=== PATIENT | male | born 1930 | race Caucasian/White ===

== ENCOUNTER 2016-09-09 13:09 | Emergency (ER) | payer MEDICARE ==
[2016-04-22 11:00] VITALS: BMI 24.8
[~2016-09-09 13:09] MED LIST: AMOXICILLIN500 M1 PO; ASPIRIN325 MG PO; CARAFATE1 G PO; CATAPRES0.2 MG PO; FUROSEMIDE40 MG PO; HYDROCODON-ACE1 EAC7 PO; LASIX40 MG PO; LOPRESSOR25 MG PO; NEURONTIN 300300 MG PO; NITROQUICK0.4 MG SL; NORVASC10 MG PO; PLAVIX75 MG PO; PRAVACHOL40 MG PO; PROTONIX40 MG PO; VITAMIN B-1000 MCG/M SQ; VITAMIN B-1250 MCG
[2016-09-09 14:10] LABS: BASOPHILS 0.3 % (0-2); EOSINOPHILS 8.2 % (0-7); HEMATOCRIT 34.7 % (42.0-54.0); HEMOGLOBIN 11.2 g/dL (13.5-17.5); IMMATURE GRANULOCYTES 0.4 % (0-5); LYMPHOCYTES 37.4 % (15-50); MCH 30.6 pg (26.0-34.0); MCHC 32.3 g/dL (31.0-37.0); MCV 94.8 fL (80.0-100.0); MEAN PLATELET VOLUME 11.9 fL (7.4-10.4); NEUTROPHILS 47.7 % (40-80); PLATELET COUNT 164 10x3/uL (130-400); RBC 3.66 10x6/uL (4.20-6.10); RDW 14.1 % (11.5-14.5)
[2016-09-09 14:23] LABS: APTT 25.8 SECONDS (22.8-39.4); INR 1.05 (0.85-1.17); PROTIME 13.6 SECONDS (11.6-15.0)
[2016-09-09 14:29] LABS: ALBUMIN 3.4 g/dL (3.4-5.0); ALKALINE PHOSPHATASE 103 U/L (46-116); ALT (SGPT) 22 U/L (10-68); BILIRUBIN - TOTAL 0.32 mg/dL (0.2-1.3); CALC OSMOLALITY 292 mosm/kg (275-300); CALCIUM 8.7 mg/dL (8.5-10.1); CARBON DIOXIDE 27.2 mmol/L (21.0-32.0); CHLORIDE - SERUM 109 mmol/L (98-107); CREATININE - SERUM 3.2 mg/dL (0.6-1.3); GLUCOSE 110 mg/dL (74-106); POTASSIUM - SERUM 4.9 mmol/L (3.5-5.1); PROTEIN - SERUM 6.3 g/dL (6.4-8.2); SODIUM 141 mmol/L (136-145); UREA NITROGEN 42 mg/dL (7-18); eGFR NON AFRICAN AMERICAN 20 mL/min (90-120)
[2016-09-09 14:37] LABS: CREATINE KINASE 104 UL (21-232)
[2016-09-09 14:38] LABS: TROPONIN-I < 0.017 ng/mL (0.000-0.060)
== END 2016-09-09 16:46 | disposition home or self-care (01) ==
LOC: D.ER 13:09
PROVIDERS: Emergency Medicine
DX: R00.1 Bradycardia, unspecified (principal); R47.1 Dysarthria and anarthria; I12.9 Hypertensive chronic kidney disease with stage 1 through stage 4 chronic kidney disease, or unspecified chronic kidney disease; N18.9 Chronic kidney disease, unspecified; I25.10 Atherosclerotic heart disease of native coronary artery without angina pectoris

== ENCOUNTER 2017-02-05 06:20 | Outpatient (CLI) | payer MEDICARE ==
--- NOTE | ~2017-02-05 | HEMODYNAMI ---
PATIENT:THAO BAUMANN MEDICAL RECORD: [id number] : 28 LOCATION:D[facility]MA ADMISSION DATE: 02/05/17 Generatedon:02/05/20179:12 Patient name: THAO BAUMANN Patient #: [id number] : 1930 Date of study: 02/05/2017 Page: Of Hemodynamic Procedure Report Patient Data Patient Demographics Procedure consent was obtained First Name: THAO Gender: Male Last Name: PASTOR : 1930 Middle Initial: M Age: 86 year(s) Patient #: [id number] Race: SSN: [id number] Additional ID: [id number] Contact details [address]: [address] [place] [address] RO[address] State: [place] City: [place] Zip code: [address] Past Medical History Allergies: No known allergies Admission Admission Data Admission Date: 02/05/2017 Admission Time: 6:20 Lab Results Lab Result Date: 02/05/2017 Lab Result Time: 0:00 Biochemistry Name Units Result Min Max BUN mg/dl 35 --(----)-* 7 18 Creatinine mg/dl 2.7 --(----)-* 0.6 1.3 CBC Name Units Result Min Max Hemoglobin g/dl 10.6 *-(----)-- 13.5 17.5 Procedure Procedure Types Cath Procedure Diagnostic Procedure [facility] w/Coronaries PCI Procedure Coronary Stent Initial Miscellaneous Procedures Moderate Sedation up to 30 minutes Peripheral Cath Diagnostic Procedure Cath Peripheral Ynlzf-Obciola-Ezt-Off Procedure Description Procedure Date Procedure Date: 02/05/2017 Procedure Start Time: 8:52 Procedure End Time: 9:08 Procedure Staff Name Function Jarod Gonzalez MD Performing Physician Slime Rodriguez RT Scrub Luis Ramey RN Nurse Abigail Hunt RT Monitor Indication Angina Procedure Data Cath Procedure Fluoroscopy Diagnostic fluoroscopy Total fluoroscopy Time: 3.5 time: 3.5 min min Diagnostic fluoroscopy Total fluoroscopy dose: 556 dose: 556 mGy mGy Contrast Material Contrast Material Type Amount (ml) Isovue 300 59 Entry Location Entry Primary Successful Side Size Upsize Upsize Entry Closure Succes sful Closure Location (Fr) 1 (Fr) 2 (Fr) Remarks Device Remarks Femoral Right 5 Fr 6 Fr Exoseal artery Short Estimated blood loss: 5 ml Procedure Complications No complications Procedure Medications Medication Administration Route Dosage Oxygen NC 2 l/min Lidocaine 2% added to field 20 Heparin Flush Bag added to field 2 bags (1000units/500ml NS) 0.9% NaCl I.V. 100 ml/hr Versed I.V. 0.5 mg Fentanyl I.V. 25 mcg Heparin Bolus I.V. 4000 units Integrilin (Bolus I.V. 6.8 ml 2mg/ml) Plavix P.O. 600 mg Hemodynamics Rest HGB: 10.6 (g/dl) Heart Rate: 55 (bpm) Pressure Samples Time Site Value (mmHg) Purpose Heart Use Rate(bpm) 8:54 LV 120/18,45 Snapshot 48 Snapshots Pre Cath Intra NCS Post Cath Vital Signs Time Heart Resp SPO2 NIBP (mmHg) Rhythm Pain Sedation Rate (ipm) (%) Status Level (bpm) 8:24:47 53 17 97 137/72(107) NSR 0 (11) 9(A) , No pain 8:29:55 51 16 98 141/67(115) NSR 0 (11) 9(A) , No pain 8:34:21 53 15 98 134/63(118) NSR 0 (11) 9(A) , No pain 8:38:45 47 15 100 136/59(110) NSR 0 (11) 9(A) , No pain 8:43:03 49 17 100 130/66(112) NSR 0 (11) 9(A) , No pain 8:47:26 47 16 96 115/60(97) NSR 0 (11) 9(A) , No pain 8:51:42 49 17 99 126/62(98) NSR 0 (11) 9(A) , No pain 8:56:04 45 16 97 112/55(89) NSR 0 (11) 9(A) , No pain 9:00:20 51 17 96 108/57(83) NSR 0 (11) 9(A) , No pain 9:04:36 46 16 95 102/52(81) NSR 0 (11) 9(A) , No pain 9:08:48 49 16 95 94/53(81) NSR 0 (11) 9(A) , No pain Medications Time Medication Route Dose Verified Delivered Reason Notes Effectiveness by by 8:36:24 Oxygen NC 2 Jarod Smith used for l/min Carlos Ramey RN procedure 8:36:31 Lidocaine 2% added 20ml Jarodjami Olivera for local to vial Carlos Gonzalez MD anesthetic field 8:36:37 Heparin Flush added 2 Jarod Jarod used for Bag to bags Carlos Gonzalez MD procedure (1000units/500ml field NS) 8:36:46 0.9% NaCl I.V. 100 Jarod Smith Per physician ml/hr Carlos Ramey RN 8:52:22 Versed I.V. 0.5 Jarod Smith for sedation mg Carlos Ramey RN 8:52:28 Fentanyl I.V. 25 Jarod Smith for sedation mcg Carlos Ramey RN 9:01:08 Heparin Bolus I.V. 4000 Jarod Smith for verifie d units Carlos Ramey RN anticoagulation with dr gonzalez 9:03:31 Integrilin I.V. 6.8 Jarod Smith for wasted (Bolus 2mg/ml) ml Carlos Ramey RN antiplatelet 3.2 ml therapy of vial 9:10:48 Plavix P.O. 600 Jarod Smith for mg Carlos Ramey RN antiplatelet therapy Procedure Log Time Note 8:10:51 Informed consent obtained and on chart 8:10:57 Diagnostic Cath Status : Elective 8:11:15 Indication : Angina 8:11:46 Slime Rodriguez RT(R) sent for patient. Start room use. 8:11:47 Time tracking: Regular hours 8:11:52 Plan of Care:Hemodynamics will remain stable., Cardiac rhythm will remain stable., Comfort level will be maintained., Respiratory function will remain adequate., Patient/ family verbilizes understanding of procedure., Procedure tolerated without complication., Recovers from procedure without complications.. 8:17:00 Patient received from Pre/Post Procedure Room to CCL 2 Alert and oriented. Tansferred to table in Supine position. 8:17:02 Warm blankets applied, and nick hugger turned on for patient comfort. 8:17:02 Correct patient and procedure confirmed by team. 8:17:03 ECG and BP/O2 sat monitors applied to patient. 8:23:34 Vital chart was started 8:24:41 Baseline sample Acquired. 8:24:56 Rhythm: sinus rhythm 8:24:58 Full Disclosure recording started 8:25:01 H&P Date Dictated: 02/02/2017 New H&P dictated by physician.. 8:25:47 Pre-procedure instructions explained to patient. 8:25:47 Pre-op teaching completed and patient verbalized understanding. 8:25:48 Family in waiting room. 8:25:51 Patient NPO since Midnight. 8:26:17 Is the patient allergic to Iodine/contrast media? No. 8:26:18 Was the patient premedicated? No 8:26:19 Is patient on blood thinner?Yes 8:26:22 ACC The patient was administered the following blood thiners within the last 24 hours: ACCPlavix 8:26:57 Patient diabetic? No. 8:26:59 Previous problem with sedation/anesthesia? No ? 8:27:01 Snore? Yes 8:27:02 Sleep apnea? No 8:27:03 Deviated septum? No 8:27:04 Opens mouth fully? Yes 8:27:04 Sticks out tongue? Yes 8:27:06 Airway obstruction? No ? 8:27:10 Dentures? Yes in tight 8:27:16 Pre procedure: right dorsailis pedis pulse Doppler 8:27:19 Pre procedure: left dorsailis pedis pulse Doppler 8:27:22 Patient pain scale 0/10 ?. 8:27:27 IV patent on arrival in left forearm with 0.9% NaCl at O. 8:29:04 Lab Result : Creatinine 2.7 mg/dl 8:29:04 Lab Result : BUN 35 mg/dl 8:29:04 Lab Result : Hemoglobin 10.6 g/dl 8:29:09 Lab results completed and on chart. 8:29:15 Bilateral groins area was prepped with chlora-prep and draped in sterile fashion 8:29:16 Alarms reviewed by R. N. 8:29:16 Sharps counted by scrub and verified by R.N. 8:36:24 Oxygen 2 l/min NC was administered by Luis Ramey RN; used for procedure; 8:36:31 Lidocaine 2% 20ml vial added to field was administered by Jarod Gonzalez MD; for local anesthetic; 8:36:37 Heparin Flush Bag (1000units/500ml NS) 2 bags added to field was administered by Jarod Gonzalez MD; used for procedure; 8:36:46 0.9% NaCl 100 ml/hr I.V. was administered by Luis Ramey RN; Per physician; 8:47:23 Physician arrived 8:47:23 --------ALL STOP TIME OUT------ 8:47:24 Final Timeout: patient, procedure, and site verified with staff and physician. All members of the team are in agreement. 8:47:27 Bilateral groins site verified by team. 8:47:30 Physical assessment completed. ASA score P 2 - A patient with mild systemic disease as per Jarod Gonzalez MD. 8:48:08 Sedation plan: IV Moderate Sedation Versed, Fentanyl 8:48:24 Acist Syringe opened to sterile field. 8:48:24 Acist Hand Control opened to sterile field. 8:48:25 Bag Decanter opened to sterile field. 8:48:25 Medline Cath Pack opened to sterile field. 8:48:26 St Cristóbal 260cm J .035 wire opened to sterile field. 8:48:26 Merit BasixCompak Inflation Kit opened to sterile field. 8:48:26 Acist Manifold opened to sterile field. 8:48:27 Tegaderm 4 x 4 opened to sterile field. 8:49:42 Terumo 5Fr Lincoln Sheath opened to sterile field. 8:49:48 Diagnostic Infinity 5Fr Multipack catheter opened to sterile field. 8:52:22 Versed 0.5 mg I.V. was administered by Luis Ramey RN; for sedation; 8:52:28 Fentanyl 25 mcg I.V. was administered by Luis Ramey RN; for sedation; 8:52:41 Procedure started. 8:52:45 Local anesthetic to right femoral artery with Lidocaine 2% by Jarod Gonzalez MD.INITIAL ACCESS ONLY 8:52:59 A 5 Fr sheath was inserted into the Right Femoral artery 8:53:55 5 Fr pig guide catheter was inserted over the wire 8:54:28 LV hemodynamics recorded. 8:54:29 LV gram done using KAM 8:54:31 Injector settings: Ml/sec: 5, Volume: 15, 8:54:37 EF : 60 % 8:55:31 Abdominal Aortagram was performed. 8:56:17 Injector settings: Ml/sec: 10, Volume: 20, 8:56:32 5 Fr jl 4 guide catheter was inserted over the wire 8:57:34 LCA angiography performed. 8:57:37 Injector settings: Ml/sec: 3, Volume: 6, 8:58:37 Catheter removed. 8:58:47 5 Fr 3drc guide catheter was inserted over the wire 8:59:05 No World Bordersumo 6Fr Lincoln Sheath opened to sterile field. 8:59:19 Aragon Michelle Kaufmann Designsisper J 300cm 0.014 guide wire opened to sterile field. 8:59:39 RCA angiography performed. 8:59:41 Injector settings: Ml/sec: 3, Volume: 6, 8:59:43 Catheter removed. 8:59:43 Proceeding to intervention. 8:59:53 Sheath upsized to a 6 Fr Short. 9:00:38 Element Labstronic Launcher 6Fr 3DRC guide catheter opened to sterile field. 9:00:47 6 Fr 3drc guide catheter was inserted over the wire 9:00:51 LC Style.comisper wire advanced. 9:01:08 Heparin Bolus 4000 units I.V. was administered by Luis Ramey RN; for anticoagulation; verified with dr gonzalez 9:02:12 Wire advanced across lesion. 9:03:31 Integrilin (Bolus 2mg/ml) 6.8 ml I.V. was administered by Luis Ramey RN; for antiplatelet therapy; wasted 3.2 ml of vial 9:04:18 Inflation Number: 1 A Vaibhav OTW 3.5 x 15 stent was prepped and advanced across the Prox RCA. The stent was deployed at 21 JEANNE for 0:10 (min:sec). 9:04:26 Inflation number: 2 The stent balloon was then re-inflated across the Prox RCA to 23 JEANNE for 0:10 (min:sec). 9:05:01 Stent catheter was removed intact over wire. 9:05:02 Wire removed. 9:05:02 Guide catheter removed. 9:05:11 Cordis 6Fr Exoseal opened to sterile field. 9:06:23 Sheath removed intact; hemostasis achieved with Exoseal to the Right Femoral artery. 9:06:25 Procedure ended.(Physican Out) 9:07:00 Fluoroscopy time 03.50 minutes. 9:07:04 Fluoroscopy dose: 556 mGy 9:07:04 Flurop Dose total: 556 9:07:14 Contrast amount:Isovue 300 59ml. 9:07:18 Sharps counted by scrub and verified by R.N. 9:07:26 Insertion/operative site no bleeding no hematoma. 9:07:31 Post-op/insertion site Right Femoral artery dressed using a 4 x 4 and Tegaderm. 9:07:34 Post right femoral artery:stable 9:07:36 Post Procedure Pulses reassessed and unchanged 9:07:39 Post procedure rhythm: unchanged. 9:07:41 Estimated blood loss: 5 ml 9:07:42 Post procedure instruction explained to patient.Patient verbalizes understanding. 9:07:43 Patient needs reinforcement of post procedure teaching. 9:08:05 Procedure type changed to Cath procedure, Diagnostic procedure, LHC, LHC w/Coronaries, PCI procedure, Coronary Stent Initial, Miscellaneous Procedures, Moderate Sedation up to 30 minutes, Peripheral Cath Diagnostic Procedure, Cath Peripheral, Wbtle-Goggwns-Uil-Off 9:08:05 Procedure and supply charges have been captured, reviewed, submitted and are correct. 9:08:10 Procedure Complication : No complications 9:08:13 Vital chart was stopped 9:08:13 See physician's report for complete and final results. 9:08:16 Report given to Pre/Post Procedure Room. 9:08:19 Patient transfered to Pre/Post Procedure Room with Stretcher. 9:08:21 Procedure ended. 9:08:21 Full Disclosure recording stopped 9:08:29 ACC-PCI Only Patient was given prescriptions, or instructed by Jarod Gonzalez MD to start/continue the following medications upon discharge: Plavix 9:08:31 End room use (Document Last) 9:10:48 Plavix 600 mg P.O. was administered by Luis Ramey RN; for antiplatelet therapy; Intervention Summary Intervention Notes Time ActionType Lesion and Equipment Action# Pressure Duration Attributes Used 9:04:18 Place stent Prox RCA Vaibhav OTW 1 21 00:10 3.5 x 15 stent 9:04:26 Reinflate Prox RCA Vaibhav OTW 2 23 00:10 stent 3.5 x 15 balloon stent Device Usage Item Name Manufacture Quantity Catalog Hospital Part Current Minima l Lot# / Number Charge Number Stock Stock Serial# Code Acist Acist 1 42716 512902 759473 076341 20 Syringe Medical Systems Inc Acist Hand Acist 1 43468 564355 033038 704052 5 Control Medical Systems Inc Bag Microtek 1 2002S 734421 58709 404455 5 NanoGram Inc. Medline Cardinal 1 [id number] 472322 [address] Crist[address]bal 1 928358 149430 171978 218111 30 260cm J .035 wire [facility] 1 [id number] 492601 727734 983137 15 BasixComApangea Learningk Medical Inflation Kit Acist Acist 1 83495 555005 373392 991464 5 Manifold Medical Systems Inc Tegaderm 4 3M 1 1626W 046926 323421 131058 5 x 4 Terumo 5Fr Terumo 1 [id number] 023968 100404 374987 40 Lincoln Sheath Diagnostic Cardinal 1 OR3159 653776 53862 174483 30 Accessory Addict [employer] 5Fr Multipack catheter Terumo 6Fr Terumo 1 [id number] 052041 813752 733679 40 Lincoln Sheath Aragon Aragon 1 [id number] 987313 334069 227409 5 Whisper J Vascular 300cm 0.014 guide wire Medtronic Medtronic 1 [id number] 473035 264429 765532 1 Launcher 6Fr 3DRC guide catheter Holmes OTW Medtronic 1 [id number] 838359 6527510 551369 5 [id number] 3.5 x 15 stent Cordis 6Fr Cardinal 1 EX600 748276 823931 800265 10 [facility] Innovacene Signature Audit [place] Stage Time Signature Unsigned Intra-Procedure 02/05/2017 Abigail Hunt 9:12:13 AM RT(R) Signatures Monitor : Abigail Hunt RT Signature : Date : Time : [facility] [address] [place] [address]
[2017-02-05] MEDS ORDERED: ISOSORBIDE MONO30 M1 PO (06:49)
[2017-02-05 06:58] VITALS: BP 132/61; BMI 24.4
[2017-02-05 07:05] LABS: BASOPHILS 0.4 % (0-2); EOSINOPHILS 5.2 % (0-7); HEMATOCRIT 31.9 % (42.0-54.0); HEMOGLOBIN 10.6 g/dL (13.5-17.5); IMMATURE GRANULOCYTES 0.1 % (0-5); LYMPHOCYTES 34.1 % (15-50); MCH 30.3 pg (26.0-34.0); MCHC 33.2 g/dL (31.0-37.0); MCV 91.1 fL (80.0-100.0); MEAN PLATELET VOLUME 10.8 fL (7.4-10.4); MONOCYTES 8.2 % (2-11); PLATELET COUNT 150 10x3/uL (130-400); RDW 13.8 % (11.5-14.5); WBC 7.9 10x3/uL (4.8-10.8)
[2017-02-05 07:18] LABS: ANION GAP 14.6 mmol/L (8-16); CARBON DIOXIDE 22.1 mmol/L (21.0-32.0); CREATININE - SERUM 2.7 mg/dL (0.6-1.3); POTASSIUM - SERUM 4.7 mmol/L (3.5-5.1)
[2017-02-05] MEDS ORDERED: PLAVIX75 MG PO (09:30)
--- NOTE | 2017-02-05 09:40 | NUR ---
2L NC, NO RESP DISTRESS NOTED. RIGHT GROIN 6F EXOSEAL CDI, NO BLEEDING OR HEMATOMA NOTED. NO C/O CHEST PAIN OR NAUSEA. VSS. INSTRUCTED PT TO KEEP HEAD FLAT ON PILLOW AND RIGHT LEG STRAIGHT. AT BEDSIDE, CALL LIGHT WITHIN REACH.
--- NOTE | 2017-02-05 10:10 | NUR ---
RESTING QUIETLY WITH EYES CLOSED. VSS. RIGHT GROIN 6F EXOSEAL CDI, NO BLEEDING OR HEMATOMA NOTED. 2L NC, NO RESP DISTRESS. NO C/O PAIN OR NAUSEA. WILL CONTINUE TO MONITOR.
--- NOTE | 2017-02-05 10:25 | NUR ---
RIGHT GROIN 6F EXOSEAL CDI, NO BLEEDING OR HEMATOMA NOTED. 2L NC, NO RESP DISTRESS. VSS. DENIES ANY PAIN. SIDE RAILS UP X2, CALL LIGHT WITHIN REACH.
--- NOTE | 2017-02-05 10:56 | NUR ---
RESTING QUIETLY WITH EYE CLOSED. NO C/O NAUSEA OR PAIN. RIGHT GROIN 6F EXOSEAL CDI, NO BLEEDING OR HEMATOMA NOTED. VSS. WILL CONTINUE TO MONITOR.
--- NOTE | 2017-02-05 11:25 | NUR ---
RIGHT GROIN 6F EXOSEAL CDI, NO BLEEDING OR HEMATOMA NOTED. 2L NC, NO RESP DISTRESS NOTED. NO C/O AT THIS TIME. SANDWICH TRAY GIVEN, NO NAUSEA. AT BEDSIDE, CALL LIGHT WITHIN REACH.
--- NOTE | 2017-02-05 12:27 | NUR ---
HOB ELEVATED 30 DEGREES. RIGHT GROIN 6F EXOSEAL CDI, NO BLEEDING OR HEMATOMA NOTED.
--- NOTE | 2017-02-05 12:48 | NUR ---
LEFT FA PIV D/C'D WITH CATHETER INTACT, BAND AID TO SITE. UP TO BEDSIDE TO GET DRESSED.
--- NOTE | 2017-02-05 12:54 | NUR ---
UP TO RESTROOM TO VOID.
--- NOTE | 2017-02-05 13:05 | NUR ---
DISCHARGE INSTRUCTIONS GIVEN, VERBALIZED UNDERSTANDING. TAKEN OUT VIA WHEELCHAIR BY CATH THERAPEUTIC SALES SPECIALIST. LEFT FACILITY WITH FAMILY MEMBER AND ALL PERSONAL BELONGINGS.
--- NOTE | 2017-02-05 16:47 | OP ---
PATIENT NAME: THAO BAUMANN MEDICAL RECORD: [id number] :28 LOCATION:D.CAT ADMISSION DATE: SURGEON: DELFINO GARNER MD DATE OF OPERATION: 02/05/2017 PROCEDURES: 1. PTCA stent RCA. 2. Left heart catheterization. 3. Selective coronary angiography. 4. Left ventriculogram. INDICATION: Angina and coronary artery disease. PROCEDURE IN DETAIL: After informed consent was obtained and after a detailed explanation of the risks, benefits as well as alternative therapies, the patient elected to proceed with angiogram and angioplasty. The right femoral area is prepped and draped in normal sterile fashion. The right femoral artery was cannulated via modified Seldinger technique with placement of 6-Cameroonian sheath. All catheters exchanged through this sheath. FINDINGS: The left ventriculogram was performed in standard 30-degree KAM view, reveals good cardiac wall motion throughout all segments. Overall ejection fraction estimated 60%. SELECTIVE CORONARY ANGIOGRAPHY: 1. Left main is with no significant angiographic disease. 2. Left anterior descending has previously placed stents, these are widely patent with no significant restenosis. No disease elsewise throughout the LAD or its branches. 3. Left circumflex shows moderate irregularities, but no flow-limiting stenosis. 4. The right coronary has previously placed stents. There is 90% in-stent restenosis proximally. PTCA STENT OF THE RIGHT CORONARY: The stent used was 3.5 x 15 mm Vaibhav taken to 23 atmospheres. Result was 0% residual stenosis. OVERALL IMPRESSION: Successful percutaneous transluminal coronary angioplasty stent of the right coronary artery going from 90% initial stenosis to 0% residual stenosis. TRANSINT:[id number] Voice Confirmation ID: [id number] DOCUMENT ID: [id number] DELFINO GARNER MD at 1647 CC: [id number] DICTATION DATE: 02/05/17 0911 RECEPTIONIST/TELEPHONE OPERATOR: 02/05/17 1318 DEP CLI 02/05/17 [address] [place] [address]
--- NOTE | 2017-02-05 16:48 | OP ---
PATIENT NAME: THAO BAUMANN MEDICAL RECORD: [id number] :[birth year] LOCATION:D.CAT ADMISSION DATE: SURGEON: DELFINO GARNER MD DATE OF OPERATION: 02/05/2017 PROCEDURES: 1. Aortofemoral runoff. 2. Abdominal aortography. INDICATION: Claudication and peripheral vascular disease. PROCEDURE IN DETAIL: After informed consent was obtained and after detailed explanation of risks, benefits as well as alternative therapies, the patient elected to proceed with angiogram. The right femoral area had a preexisting sheath. All catheters exchanged through this sheath. FINDINGS: The abdominal aortography was performed. The catheter was pulled down for aortofemoral runoff. Abdominal aortography reveals no significant abdominal aortic disease. No dissection or aneurysm formation. No renal artery stenosis. RIGHT LEG: A. Iliac: The common internal and external iliacs are heavily calcified, but only mild luminal irregularities, but no flow-limiting stenosis. B. Femoral system: The common superficial and deep femoral are heavily calcified, but only minimal luminal irregularities, wide patency throughout. No flow-limiting stenosis. C. Popliteal and infrapopliteal vessels are patent giving 3-vessel runoff to the foot. LEFT LEG: A. Iliac: The common internal and external iliacs are heavily calcified, but only mild luminal irregularities, but no flow-limiting stenosis. B. Femoral system: The common superficial and deep femoral are heavily calcified, but only minimal luminal irregularities, wide patency throughout. No flow-limiting stenosis. C. Popliteal and infrapopliteal vessels are patent giving 3-vessel runoff to the foot. OVERALL IMPRESSION: Minimal peripheral vascular disease is present. No flow-limiting stenosis, leg pain is not secondary to arterial vascular insufficiency. TRANSINT:[id number] Voice Confirmation ID: [id number] DOCUMENT ID: [id number] DELFINO GARNER MD at 1648 CC: [id number] DICTATION DATE: 02/05/17 09 INVENTORY TRANSCRIBER: 02/05/17 1320 DEP CLI 02/05/17 [facility] [address] [id number]
== END 2017-02-05 13:05 | disposition home or self-care (01) ==
LOC: D.CATH 06:20
PROVIDERS: Internal Medicine Interventional Cardiology
DX: I25.119 Atherosclerotic heart disease of native coronary artery with unspecified angina pectoris (principal); I10 Essential (primary) hypertension; I70.213 Atherosclerosis of native arteries of extremities with intermittent claudication, bilateral legs; Z87.891 Personal history of nicotine dependence; K21.9 Gastro-esophageal reflux disease without esophagitis; Z01.812 Encounter for preprocedural laboratory examination
CPT/HCPCS: 93458; C9600

== ENCOUNTER 2017-06-07 10:51 | Emergency (ER) | payer MEDICARE ==
[~2017-06-07 10:51] MED LIST changes: +ISOSORBIDE MONO30 M1 PO
[2017-06-07 11:26] LABS: BASOPHILS 0 % (0-2); EOSINOPHILS 3.5 % (0-7); HEMATOCRIT 31.9 % (42.0-54.0); HEMOGLOBIN 10.3 g/dL (13.5-17.5); IMMATURE GRANULOCYTES 0.3 % (0-5); LYMPHOCYTES 30.6 % (15-50); MCH 29.9 pg (26.0-34.0); MCHC 32.3 g/dL (31.0-37.0); MCV 92.5 fL (80.0-100.0); MEAN PLATELET VOLUME 11.1 fL (7.4-10.4); MONOCYTES 11.3 % (2-11); NEUTROPHILS 54.3 % (40-80); RBC 3.45 10x6/uL (4.20-6.10); RDW 13.6 % (11.5-14.5); WBC 6.8 10x3/uL (4.8-10.8)
[2017-06-07 11:27] LABS: PLATELET COUNT 201 10x3/uL (130-400)
[2017-06-07 11:44] LABS: ALBUMIN 3.1 g/dL (3.4-5.0); ANION GAP 15.7 mmol/L (8-16); BILIRUBIN - TOTAL 0.39 mg/dL (0.2-1.3); CALCIUM 9.3 mg/dL (8.5-10.1); CARBON DIOXIDE 22.1 mmol/L (21.0-32.0); CREATININE - SERUM 3.3 mg/dL (0.6-1.3); POTASSIUM - SERUM 4.8 mmol/L (3.5-5.1); PROTEIN - SERUM 6.6 g/dL (6.4-8.2)
== END 2017-06-07 16:17 | disposition home or self-care (01) ==
LOC: D.ER 10:51
PROVIDERS: Family Medicine
DX: R19.7 Diarrhea, unspecified (principal); I12.9 Hypertensive chronic kidney disease with stage 1 through stage 4 chronic kidney disease, or unspecified chronic kidney disease; N18.9 Chronic kidney disease, unspecified

== ENCOUNTER 2017-06-30 12:03 | Outpatient (CLI) | payer MEDICARE ==
--- NOTE | ~2017-06-30 | HEMODYNAMI ---
PATIENT:THAO BAUMANN MEDICAL RECORD: [id number] : [birth year] [id number] ADMISSION DATE: 06/30/17 Generatedon:07/01/201712:25 Patient name: THAO BAUMANN Patient #: [id number] : 1930 Date of study: 07/01/2017 Page: Of Hemodynamic Procedure Report Patient Data Patient Demographics Procedure consent was obtained First Name: THAO Gender: Male Last Name: PASTOR : 1930 Middle Initial: M Age: 86 year(s) Patient #: [id number] Race: SSN: [id number] Additional ID: [id number] Contact details [address]: [address] [place] [address] ROAD State: [place] City: [place] Zip code: [address] Past Medical History Allergies: No known allergies Admission Admission Data Admission Date: 06/30/2017 Admission Time: 19:07 Arrival Date: 06/30/2017 Arrival Time: 12:03 Admit Source: Other Insurance Payor: Medicare Room #: D.2117 Weight (lbs.): 157 Weight (kg.): 71.21 Procedure Procedure Types Cath Procedure PCI Procedure Coronary Stent Coronary Stent Initial Miscellaneous Procedures Moderate Sedation up to 15 minutes Procedure Description Procedure Date Procedure Date: 07/01/2017 Procedure Start Time: 12:15 Procedure End Time: 12:22 Procedure Staff Name Function Jarod Gonzalez MD Performing Physician Abigail Hunt RT Monitor Clarice Chung RT Scrub Lissa Lopez RN Nurse Procedure Data Cath Procedure Fluoroscopy Diagnostic fluoroscopy Total fluoroscopy Time: 1.7 time: 1.7 min min Diagnostic fluoroscopy Total fluoroscopy dose: 149 dose: 149 mGy mGy Contrast Material Contrast Material Type Amount (ml) Isovue 300 40 Entry Location Entry Primary Successful Side Size Upsize Upsize Entry Closure Succes sful Closure Location (Fr) 1 (Fr) 2 (Fr) Remarks Device Remarks Femoral Left 6 Fr Exoseal artery Short Estimated blood loss: 5 ml Procedure Complications No complications Procedure Medications Medication Administration Route Dosage 0.9% NaCl I.V. ml/hr Oxygen NC 2 l/min Lidocaine 2% added to field 20 Heparin Flush Bag added to field 2 bags (1000units/500ml NS) Fentanyl I.V. 25 mcg Versed I.V. 0.5 mg Fentanyl I.V. 25 mcg Versed I.V. 0.5 mg Heparin Bolus I.V. 4000 units Hemodynamics Rest Heart Rate: 60 (bpm) Snapshots Pre Cath Intra NCS Post Cath Vital Signs Time Heart Resp SPO2 etCO2 NIBP (mmHg) Rhythm Pain Sedation Rate (ipm) (%) (mmHg) Status Level (bpm) 11:47:08 65 18 97 0.7 156/68(131) NSR 0 (11) 10(A) , No pain 11:51:28 64 16 99 0 143/77(129) NSR 0 (11) 10(A) , No pain 11:55:46 58 16 97 0 132/70(99) NSR 0 (11) 10(A) , No pain 12:00:00 61 14 98 15.8 147/71(115) NSR 0 (11) 10(A) , No pain 12:04:20 73 16 99 0 134/66(97) NSR 0 (11) 10(A) , No pain 12:08:38 58 14 97 0 132/61(102) NSR 0 (11) 9(A) , No pain 12:12:52 61 14 97 0 125/71(104) NSR 0 (11) 9(A) , No pain 12:17:06 61 14 96 0 136/63(118) NSR 0 (11) 9(A) , No pain 12:21:24 72 16 98 0 140/65(91) NSR 0 (11) 10(A) , No pain Medications Time Medication Route Dose Verified Delivered Reason Notes Effectiveness by by 11:46:09 0.9% NaCl I.V. ml/hr Jarod Alcaraz used for Carlos Lopez RN procedure 11:46:18 Oxygen NC 2 Jarod Alcaraz Per physician l/min Carlos Lopez RN 11:46:26 Lidocaine 2% added 20ml Jarod Olivera for local to vial Carlos Gonzalez MD anesthetic field 11:46:58 Heparin Flush added 2 Jarod Olivera used for Bag to bags Carlos Gonzalez MD procedure (1000units/500ml field NS) 12:05:57 Fentanyl I.V. 25 Jarod Alcaraz for sedation mcg Carlos Lopez RN 12:06:04 Versed I.V. 0.5 Jarod Alcaraz for sedation mg Carlos Lopez RN 12:15:21 Fentanyl I.V. 25 Jarod Alcaraz for sedation mcg Carlos Lopez RN 12:15:26 Versed I.V. 0.5 Jarod Alcaraz for sedation mg Carlos Lopez RN 12:16:40 Heparin Bolus I.V. 4000 Jarod Alcaraz for verifi ed units Carlos Lopez RN anticoagulation by Procedure Log Time Note 10:54:03 Patient Weight : 157 lbs 10:55:55 Diagnostic Cath Status : Elective 11:24:56 Lissa Lopez RN sent for patient. Start room use. 11:24:58 Signed procedure consent form obtained from patient. 11:34:12 Time tracking: Regular hours 11:34:22 Plan of Care:Hemodynamics will remain stable., Cardiac rhythm will remain stable., Comfort level will be maintained., Respiratory function will remain adequate., Patient/ family verbilizes understanding of procedure., Procedure tolerated without complication., Recovers from procedure without complications.. 11:34:51 Patient received from Med II to CCL 2 Alert and oriented. Tansferred to table in Supine position. 11:34:52 Warm blankets applied, and nick hugger turned on for patient comfort. 11:34:53 Correct patient and procedure confirmed by team. 11:34:53 ECG and BP/O2 sat monitors applied to patient. 11:45:56 Vital chart was started 11:46:09 0.9% NaCl ml/hr I.V. was administered by Lissa Lopez RN; used for procedure; 11:46:18 Oxygen 2 l/min NC was administered by Lissa Lopez RN; Per physician; 11:46:26 Lidocaine 2% 20ml vial added to field was administered by Jarod Gonzalez MD; for local anesthetic; 11:46:58 Heparin Flush Bag (1000units/500ml NS) 2 bags added to field was administered by Jarod Gonzalez MD; used for procedure; 11:48:17 Baseline sample Acquired. 11:48:22 Rhythm: sinus rhythm 11:48:23 Full Disclosure recording started 11:50:11 H&P Date Dictated: 07/01/2017 Within 30 days and on chart.. 11:50:13 Pre-procedure instructions explained to patient. 11:50:13 Pre-op teaching completed and patient verbalized understanding. 11:50:14 Family in waiting room. 11:50:15 Patient NPO since Midnight. 11:50:19 Is the patient allergic to Iodine/contrast media? No. 11:50:20 Was the patient premedicated? No 11:50:21 Is patient on blood thinner?Yes 11:50:23 ACC The patient was administered the following blood thiners within the last 24 hours: ACCPlavix 11:50:39 Patient diabetic? No. 11:50:42 Previous problem with sedation/anesthesia? No ? 11:50:43 Snore? Yes 11:50:44 Sleep apnea? No 11:50:45 Deviated septum? No 11:50:47 Opens mouth fully? Yes 11:50:49 Sticks out tongue? Yes 11:50:51 Airway obstruction? No ? 11:50:54 Dentures? Yes out 11:51:01 Pre procedure: right dorsailis pedis pulse 1+ Palpable, but thready & weak; easily obliterated 11:51:03 Pre procedure: left dorsailis pedis pulse 1+ Palpable, but thready & weak; easily obliterated 11:51:05 Patient pain scale 0/10 ?. 11:51:19 IV patent on arrival in right forearm with 0.9% NaCl at [facility]. 11:51:21 Lab results completed and on chart. 11:51:25 Left groin area was prepped with chlora-prep and draped in sterile fashion 11:51:40 Alarms reviewed by R. N. 11:51:41 Sharps counted by scrub and verified by R.N. 12:00:18 Zero performed for pressure channel P1 12:03:37 GUIDE 6FR XBLAD 3.5 SH catheter ([id number]) opened to sterile field. 12:03:38 CHOICE PT Extra Support 182cm wire ([id number]) opened to sterile field. 12:03:54 Use device set CATH PACK 12:03:58 ACIST Syringe (29729) opened to sterile field. 12:03:59 ACIST Hand Control (56727) opened to sterile field. 12:04:00 ACIST Manifold (07638) opened to sterile field. 12:04:01 Medline Cath Pack ([id number]) opened to sterile field. 12:04:02 Bag Decanter (2002S) opened to sterile field. 12:04:03 DIAGNOSTIC WIRE .035 260cm J wire (202917) opened to sterile field. 12:04:14 INFLATOR Merit BasixCompak (DC0628) opened to sterile field. 12:04:15 SHEATH 6FR [place] (HGV597) opened to sterile field. 12::25 Physician arrived 12:: --------ALL STOP TIME OUT------ :: Final Timeout: patient, procedure, and site verified with staff and physician. All members of the team are in agreement. 12:05:32 Left groin site verified by team. 12::37 Physical assessment completed. ASA score P 2 - A patient with mild systemic disease as per Abigail Hunt RT(R). 12:05:40 Sedation plan: IV Moderate Sedation Medication:Versed, Fentanyl 12:05:57 Fentanyl 25 mcg I.V. was administered by Lissa Lopez RN; for sedation; 12:06:04 Versed 0.5 mg I.V. was administered by Lissa Lopez RN; for sedation; 12:15:21 Fentanyl 25 mcg I.V. was administered by Lissa Lopez RN; for sedation; 12:15:21 Procedure started. 12:: Versed 0.5 mg I.V. was administered by Lissa Lopez RN; for sedation; 12:15:26 Local anesthetic to left femerol artery with Lidocaine 2% by Jarod Gonzalez MD.INITIAL ACCESS ONLY 12:15:37 A 6 Fr Short sheath was inserted into the Left Femoral artery 12:16:01 6 Fr xblad 3.5 sh guide catheter was inserted over the wire 12:16:06 choice pt wire advanced. 12:16:40 Heparin Bolus 4000 units I.V. was administered by Lissa Lopez RN; for anticoagulation; verified by 12:17:15 Wire advanced across lesion. 12:19:11 Inflation Number: 1 A RADHA RX 3.5 x 15 stent ([id number]) was prepped and advanced across the LMCA. The stent was deployed at 17 JEANNE for 0:10 (min:sec). 12:20:23 Stent catheter was removed intact over wire. 12:20:24 Wire removed. 12:20:24 Guide catheter removed. 12:20:51 EXOSEAL 6Fr (EX600) opened to sterile field. 12:21:05 Sheath removed intact; hemostasis achieved with Exoseal to the Left Femoral artery. 12:21:07 Procedure ended.(Physican Out) 12:21:26 Fluoroscopy time 01.70 minutes. 12::31 Flurop Dose total: 149 12:21:31 Fluoroscopy dose: 149 mGy 12:21:40 Contrast amount:Isovue 300 40ml. 12:21:42 Sharps counted by scrub and verified by R.N. 12:21:44 Insertion/operative site no bleeding no hematoma. 12:21:47 Post-op/insertion site Left Femoral artery dressed using a 4 x 4 and Tegaderm. 12:21:52 Post left femerol artery:stable 12:21:54 Post Procedure Pulses reassessed and unchanged 12:21:56 Post procedure rhythm: unchanged. 12:21:59 Estimated blood loss: 5 ml 12:22:00 Post procedure instruction explained to patient.Patient verbalizes understanding. 12:22:01 Patient needs reinforcement of post procedure teaching. 12:22:29 Procedure type changed to Cath procedure, PCI procedure, Coronary Stent, Coronary Stent Initial, Miscellaneous Procedures, Moderate Sedation up to 15 minutes 12:22:30 Procedure and supply charges have been captured, reviewed, submitted and are correct. 12:22:34 Procedure Complication : No complications 12:22:36 Vital chart was stopped 12:22:36 See physician's report for complete and final results. 12:22:41 Report given to [facility]. 12:22:44 Patient transfered to [facility] with Stretcher. 12:22:45 Procedure ended. 12:22:45 Full Disclosure recording stopped 12:22:53 ACC-PCI Only Patient was given prescriptions, or instructed by Jarod Gonzalez MD to start/continue the following medications upon discharge: Plavix 12:22:55 End room use (Document Last) Intervention Summary Intervention Notes Time ActionType Lesion and Equipment Used Action# Pressure Duration Attributes 12:19:[address] stent LMCA RADHA RX 3.5 x 1 17 00:10 15 stent ([id number]) Device Usage Item Name Manufacture Quantity Catalog Number Hospital Part Current M inimal Lot# / Charge Number Stock Stock Serial# Code GUIDE 6FR Cardinal 1 [id number] 423174 277548 597469 3 XBLAD 3.5 [facility] catheter ([id number]) CHOICE PT [place] 1 [id number] 445107 687274 966506 5 Extra Support Scientific 182cm wire ([id number]) ACIST Syringe Acist 1 26030 434407 713990 149735 2 0 (72503) [employer] Inc ACIST Hand Acist 1 52487 748171 494343 802063 5 Control Medical (16607) Systems Inc ACIST Manifold Acist 1 80512 004238 201611 250649 5 (53545) [employer] Systems Inc Medline Cath Cardinal 1 [id number] 919496 08093 468126 5 Pack Health ([id number]) Bag Decanter Microtek 1 2001S 547455 83043 752998 5 (2001S) Medical Inc. DIAGNOSTIC [address] [place] 1 610219 436603 355551 099765 3 0 WIRE .035 260cm J wire (329161) INFLATOR Merit Merit 1 US3476 754143 277410 186811 1 5 [facility] (AZ5447) SHEATH 6FR Terumo 1 HUN185 160505 563455 040836 4 0 [place] (SPY448) RADHA RX 3.5 x Medtronic 1 [id number] 713847 8884143 700076 5 [id number] 15 stent ([id number]) EXOSEAL 6Fr Cardinal 1 EX600 997238 398677 446627 1 0 (EX600) Health Signature Audit [place] Stage Time Signature Unsigned Intra-Procedure 07/01/2017 Abigail Hunt 12:25:05 PM RT(R) Signatures Monitor : Abigail Hunt RT Signature : Date : Time : [facility] [address] [place] [address]
--- NOTE | ~2017-06-30 | HEMODYNAMI ---
PATIENT:THAO BAUMANN MEDICAL RECORD: [id number] : 28 LOCATION:[facility] ADMISSION DATE: 06/30/17 Generatedon:06/30/201716:40 Patient name: THAO BAUMANN Patient #: [id number] : 1930 Date of study: 06/30/2017 Page: Of Hemodynamic Procedure Report Patient Data Patient Demographics Procedure consent was obtained First Name: THAO Gender: Male Last Name: PASTOR : 1930 Middle Initial: M Age: 86 year(s) Patient #: [id number] Race: SSN: [id number] Additional ID: [id number] Contact details Address: [address] [place] [address] ROAD State: [place] City: [place] Zip code: [address] Past Medical History Allergies: No known allergies Admission Admission Data Admission Date: 06/30/2017 Admission Time: 12:03 Arrival Date: 06/30/2017 Arrival Time: 12:03 Admit Source: Other Insurance Payor: Medicare Weight (lbs.): 157 Weight (kg.): 71.21 Procedure Procedure Types Cath Procedure Diagnostic Procedure [facility] w/Coronaries PCI Procedure Coronary Stent Coronary Stent Initial Procedure Description Procedure Date Procedure Date: 06/30/2017 Procedure Start Time: 16:19 Procedure End Time: 16:35 Procedure Staff Name Function Jarod Gonzalez MD Performing Physician Abigail Hunt RT Monitor Clarice Chung RT Scrub Luis Ramey RN Nurse Procedure Data Cath Procedure Fluoroscopy Diagnostic fluoroscopy Total fluoroscopy Time: 2.4 time: 2.4 min min Diagnostic fluoroscopy Total fluoroscopy dose: 365 dose: 365 mGy mGy Contrast Material Contrast Material Type Amount (ml) Isovue 300 46 Entry Location Entry Primary Successful Side Size Upsize Upsize Entry Closure Succes sful Closure Location (Fr) 1 (Fr) 2 (Fr) Remarks Device Remarks Femoral Right 5 Fr 6 Fr Exoseal artery Short Estimated blood loss: 5 ml Diagnostic catheters Device Type Used For End Catheter Placement MULTIPACK Pigtail 5 Fr LV Angiography catheter MULTIPACK JL 4.0 5Fr Left Coronary catheter Angiography MULTIPACK 3DRC 5Fr Right Coronary catheter Angiography Procedure Complications No complications Procedure Medications Medication Administration Route Dosage 0.9% NaCl I.V. 100 ml/hr Oxygen NC 2 l/min Heparin Flush Bag added to field 2 bags (1000units/500ml NS) Lidocaine 2% added to field 20 Radial Cocktail added to field 1 syringe (Verapomil 2mg/Nitro 400mcg/Heparin 1500units) Versed I.V. 1 mg Fentanyl I.V. 50 mcg Heparin Bolus I.V. 4000 units Plavix P.O. 75 mg Hemodynamics Rest Heart Rate: 48 (bpm) Pressure Samples Time Site Value (mmHg) Purpose Heart Use Rate(bpm) 16:23 LV 173/16,15 Snapshot 63 Snapshots Pre Cath Intra NCS Post Cath Vital Signs Time Heart Resp SPO2 etCO2 NIBP (mmHg) Rhythm Pain Sedation Rate (ipm) (%) (mmHg) Status Level (bpm) 15:57:07 47 14 100 28.6 214/89(182) SB 0 (11) 10(A) , No pain 16:03:00 48 16 100 36.2 208/85(172) SB 0 (11) 10(A) , No pain 16:07:53 55 16 97 0.7 179/77(143) SB 0 (11) 10(A) , No pain 16:13:31 55 16 98 1.5 163/79(130) SB 0 (11) 10(A) , No pain 16:18:21 47 16 98 17 166/76(133) SB 0 (11) 10(A) , No pain 16:23:14 65 16 94 12 165/74(134) SB 0 (11) 9(A) , No pain 16:28:48 60 16 98 13.5 190/81(148) SB 0 (11) 9(A) , No pain 16:33:41 64 15 99 9 174/80(144) SB 0 (11) 10(A) , No pain 16:40:12 99 0 No Cuff SB 0 (11) 9(A) , No pain Medications Time Medication Route Dose Verified Delivered Reason Note s Effectiveness by by 15:54:00 0.9% NaCl I.V. 100 Phillip Phillip Per physician ml/hr Mark Flores RN RN 15:54:26 Oxygen NC 2 l/min Phillip Phillip Per physician Mark Flores RN RN 15:54:46 Heparin Flush added 2 bags Phillip Phillip used for Bag to Lorigan Lorigan procedure (1000units/500ml field MACKAY RN NS) 15:55:02 Lidocaine 2% added 20ml Phillip Phillip for local to vial Lorigan Lorigan anesthetic field MACKAY RN 15:55:15 Radial Cocktail added 1 Phillip Phillip used for (Verapomil to syringe Lorigan Lorigan procedure 2mg/Nitro field MACKAY RN 400mcg/Heparin 1500units) 16:20:48 Versed I.V. 1 mg Jarod Smith for sedation Carlos Ramey RN 16:20:57 Fentanyl I.V. 50 mcg Jarod Smith for sedation Carlos Ramey RN 16:28:25 Heparin Bolus I.V. 4000 Jarod Smith for veri fied units Carlos Ramey RN anticoagulation with dr gonzalez 16:36:14 Plavix P.O. 75 mg Jarod Smith for Carlos Ramey RN antiplatelet therapy Procedure Log Time Note 15:31:58 Informed consent obtained and on chart 15:32:00 Diagnostic Cath Status : Elective 15:32:31 Clarice Chung RT(R) sent for patient. Start room use. 15:32:32 Time tracking: Regular hours 15:32:37 Plan of Care:Hemodynamics will remain stable., Cardiac rhythm will remain stable., Comfort level will be maintained., Respiratory function will remain adequate., Patient/ family verbilizes understanding of procedure., Procedure tolerated without complication., Recovers from procedure without complications.. 15:42:45 Patient received from ED to CCL 1 Alert and oriented. Tansferred to table in Supine position. 15:43:02 Warm blankets applied, and nick hugger turned on for patient comfort. 15:43:03 Correct patient and procedure confirmed by team. 15:43:10 ECG and BP/O2 sat monitors applied to patient. 15:54:00 0.9% NaCl 100 ml/hr I.V. was administered by Phillip Flores RN; Per physician; 15:54:26 Oxygen 2 l/min NC was administered by Phillip Flores RN; Per physician; 15:54:46 Heparin Flush Bag (1000units/500ml NS) 2 bags added to field was administered by Phillip Flores RN; used for procedure; 15:55:02 Lidocaine 2% 20ml vial added to field was administered by Phillip Flores RN; for local anesthetic; 15:55:15 Radial Cocktail (Verapomil 2mg/Nitro 400mcg/Heparin 1500units) 1 syringe added to field was administered by Phillip Flores RN; used for procedure; 15:55:21 Vital chart was started 15:59:42 Baseline sample Acquired. 15:59:48 Rhythm: sinus bradycardia 15:59:50 Full Disclosure recording started 16:00:24 H&P Date Dictated: 06/30/2017 New H&P dictated by physician.. 16:00:25 Pre-procedure instructions explained to patient. 16:00:25 Pre-op teaching completed and patient verbalized understanding. 16:00:27 Family in waiting room. 16:00:28 Patient NPO since Midnight. 16:00:32 Is the patient allergic to Iodine/contrast media? No. 16:00:33 Was the patient premedicated? No 16:00:37 Is patient on blood thinner?Yes 16:00:40 ACC The patient was administered the following blood thiners within the last 24 hours: ACCPlavix 16:00:43 Patient diabetic? No. 16:00:58 Previous problem with sedation/anesthesia? No ? 16:01:00 Snore? Yes 16:01:01 Sleep apnea? No 16:01:02 Deviated septum? No 16:01:03 Opens mouth fully? Yes 16:01:04 Sticks out tongue? Yes 16:01:06 Airway obstruction? No ? 16:01:14 Dentures? Yes out 16:01:28 Pre procedure: right dorsailis pedis pulse Doppler 16:01:31 Pre procedure: left dorsailis pedis pulse Doppler 16:01:36 Patient pain scale 0/10 ?. 16:01:56 IV patent on arrival in left forearm with 0.9% NaCl at [facility]. 16:02:14 Lab results completed and on chart. 16:02:29 Right groin area was prepped with chlora-prep and draped in sterile fashion 16:02:33 Alarms reviewed by RGladys N. 16:02:34 Sharps counted by scrub and verified by R.N. 16:03:16 Admit Source: Other 16:03:20 Patient Weight : 157 lbs 16:03:22 Arrival Date: 06/30/2017 12:03:00 PM 16:03:32 Insurance Payor : Medicare 16:04:31 Zero performed for pressure channel P1 16:05:02 Physician paged 16:17:08 Physician arrived 16:17:08 --------ALL STOP TIME OUT------ 16:17:08 Final Timeout: patient, procedure, and site verified with staff and physician. All members of the team are in agreement. 16:17:11 Right groin site verified by team. 16:17:14 Physical assessment completed. ASA score P 2 - A patient with mild systemic disease as per Jarod Gonzalez MD. 16:17:17 Sedation plan: IV Moderate Sedation Medication:Versed, Fentanyl 16:17:23 Use device set Femoral Dx 16:17:24 ACIST Syringe (28197) opened to sterile field. 16:17:24 Bag Decanter (2002S) opened to sterile field. 16:17:24 Medline Cath Pack ([id number]) opened to sterile field. 16:17:25 SHEATH 5FR [place] (WLS783) opened to sterile field. 16:17:26 DIAGNOSTIC WIRE .035 260cm J wire (811292) opened to sterile field. 16:17:27 ACIST Hand Control (85805) opened to sterile field. 16:17:27 ACIST Manifold (20173) opened to sterile field. 16:17:28 DIAGNOSTIC Multipack 5Fr catheter set (HE1209) opened to sterile field. 16:17:29 Tegaderm 4 x 4 (1626W) opened to sterile field. 16:17:43 Procedure started. 16:19:15 Local anesthetic to right femoral artery with Lidocaine 2% by Jarod Gonzalez MD.INITIAL ACCESS ONLY 16:20:48 Versed 1 mg I.V. was administered by Luis Ramey RN; for sedation; 16:20:57 Fentanyl 50 mcg I.V. was administered by Luis Ramey RN; for sedation; 16:22:10 Dr Gonzalez holding manual pressure after attempting femoral access 16:22:57 A 5 Fr sheath was inserted into the Right Femoral artery 16:23:11 A MULTIPACK Pigtail 5 Fr catheter was advanced over the wire and used for LV Angiography. 16:23:19 LV hemodynamics recorded. 16:23:20 LV gram done using KAM 16::23 Injector settings: Ml/sec: 5, Volume: 15, 16:23:33 EF : 50 % 16:23:43 Catheter removed. 16:23:49 A MULTIPACK JL 4.0 5Fr catheter was advanced over the wire and used for Left Coronary Angiography. 16:25:03 LCA angiography performed. 16:25:06 Injector settings: Ml/sec: 3, Volume: 6, 16:26:05 Catheter removed. 16:26:12 A MULTIPACK 3DRC 5Fr catheter was advanced over the wire and used for Right Coronary Angiography. 16:26:25 RCA angiography performed. 16::27 Injector settings: Ml/sec: 3, Volume: 6, 16::49 Catheter removed. 16:28:22 Proceeding to intervention. 16:28:25 Heparin Bolus 4000 units I.V. was administered by Luis Ramey RN; for anticoagulation; verified with dr gonzalez 16:29:42 GUIDE 6FR 3DRC SH catheter ([id number]) opened to sterile field. 16:29:43 CHOICE PT Extra Support 182cm wire ([id number]) opened to sterile field. 16:29:44 INFLATOR Merit BasixCompak (RV2883) opened to sterile field. 16:29:45 SHEATH 6FR [place] (BOZ126) opened to sterile field. 16:29:55 Sheath upsized to a 6 Fr Short. 16:30:08 6 Fr 3drc sh guide catheter was inserted over the wire 16:30:13 choice pt wire advanced. 16:30:14 Wire advanced across lesion. 16:30:51 Inflation Number: 1 A RADHA RX 4.0 x 12 stent ([id number]) was prepped and advanced across the Prox RCA. The stent was deployed at 21 JEANNE for 0:10 (min:sec). 16:31:00 Stent catheter was removed intact over wire. 16:31:01 Wire removed. 16:31:01 Guide catheter removed. 16:31:12 EXOSEAL 6Fr (EX600) opened to sterile field. 16:31:23 Sheath removed intact; hemostasis achieved with Exoseal to the Right Femoral artery. 16:31:25 Procedure ended.(Physican Out) 16:33:28 Fluoroscopy time 02.40 minutes. 16:33:34 Fluoroscopy dose: 365 mGy 16:33:34 Flurop Dose total: 365 16:33:41 Contrast amount:Isovue 300 46ml. 16:33:43 Sharps counted by scrub and verified by R.N. 16:33:44 Insertion/operative site no bleeding no hematoma. 16:33:47 Post-op/insertion site Right Femoral artery dressed using a 4 x 4 and Tegaderm. 16:33:49 Post right femoral artery:stable 16:34:14 Post Procedure Pulses reassessed and unchanged 16:34:16 Post procedure rhythm: unchanged. 16:34:19 Estimated blood loss: 5 ml 16:34:20 Post procedure instruction explained to patient.Patient verbalizes understanding. 16:34:21 Patient needs reinforcement of post procedure teaching. 16:34:42 Procedure type changed to Cath procedure, Diagnostic procedure, LHC, LHC w/Coronaries, PCI procedure, Coronary Stent, Coronary Stent Initial 16:34:43 Procedure and supply charges have been captured, reviewed, submitted and are correct. 16:34:48 Procedure Complication : No complications 16:34:50 Vital chart was stopped 16:34:51 See physician's report for complete and final results. 16:34:55 Report given to [facility]. 16:34:58 Patient transfered to [facility] with Stretcher. 16:35:00 Procedure ended. 16:35:00 Full Disclosure recording stopped 16:35:08 ACC-PCI Only Patient was given prescriptions, or instructed by Jarod Gonzalez MD to start/continue the following medications upon discharge: Plavix 16:35:09 End room use (Document Last) 16:36:14 Plavix 75 mg P.O. was administered by Luis Ramey RN; for antiplatelet therapy; 16:39:44 Vital chart was started 16:40:57 Vital chart was stopped Intervention Summary Intervention Notes Time ActionType Lesion and Equipment Used Action# Pressure Duration Attributes 16:30:[address] stent Prox RCA RADHA RX 4.0 x 1 21 00:10 12 stent ([id number]) Device Usage Item Name Manufacture Quantity Catalog Number Hospital Part Current M inimal Lot# / Charge Number Stock Stock Serial# Code ACIST Syringe Acist 1 52458 771011 156718 334467 2 0 (49559) Medical Systems Inc Bag Decanter Microtek 1 2001S 345213 34061 418403 5 (2001S) Medical Inc. Medline Cath Cardinal 1 [id number] 031840 91062 480343 5 Pack Health ([id number]) SHEATH 5FR Terumo 1 WNQ997 830692 058351 477678 4 0 [place] (HBN541) DIAGNOSTIC [address] Crist[address]bal 1 125192 811957 589041 643798 3 0 WIRE .035 260cm J wire (629109) ACIST Hand Acist 1 79946 514219 117529 646451 5 Control Medical (17380) Systems Inc ACIST Manifold Acist 1 84306 824246 981311 958662 5 (38078) Medical Systems Inc DIAGNOSTIC Cardinal 1 VT1404 683398 04684 431566 3 0 Multipack 5Fr Health catheter set (CK7454) Tegaderm 4 x 4 3M 1 1626W 698606 408301 490972 5 (1626W) MULTIPACK Cardinal 1 666706 5 Pigtail 5 Fr Health catheter MULTIPACK JL Cardinal 1 178581 5 4.0 5Fr Health catheter MULTIPACK 3DRC Cardinal 1 727895 5 5Fr catheter Health GUIDE 6FR 3DRC Medtronic 1 [id number] 591981 971471 673017 1 catheter ([id number]) CHOICE PT [place] 1 [id number] 672544 203047 387082 5 Extra Support Scientific 182cm wire ([id number]) INFLATOR Merit Merit 1 PZ6519 435062 546583 814175 1 5 [employer] Medical (GY2997) SHEATH 6FR Terumo 1 CJO947 526888 901349 161543 4 0 [place] (ZXQ270) RADHA RX 4.0 x Medtronic 1 [id number] 638939 6226639 050360 5 [id number] 12 stent ([id number]) EXOSEAL 6Fr Cardinal 1 EX600 094695 895907 220354 1 0 (EX600) Health Signature Audit [place] Stage Time Signature Unsigned Intra-Procedure 06/30/2017 Abigail Hunt 4:40:55 PM RT(R) Signatures Monitor : Abigail Hunt RT Signature : Date : Time : [address] [place] [address]
--- NOTE | ~2017-06-30 | OP ---
PATIENT NAME: THAO BAUMANN MEDICAL RECORD: [id number] :28 LOCATION:[facility] ADMISSION DATE: SURGEON: DELFINO GARNER MD DATE OF OPERATION: 06/30/2017 PROCEDURES: 1. PTCA stent RCA. 2. Left heart catheterization. 3. Selective coronary angiography. 4. Left ventriculogram. INDICATION: Angina and coronary artery disease. PROCEDURE IN DETAIL: After informed consent was obtained and after detailed explanation of risks, benefits as well as alternative therapies, the patient elected to proceed with angiogram and angioplasty. The right femoral area was prepped and draped in normal sterile fashion. The right femoral artery was cannulated via modified Seldinger technique with placement of 6-Gh[place]ian sheath. All catheters exchanged through this sheath. FINDINGS: Left ventriculogram was performed in standard 30-degree KAM view, reveals preserved cardiac wall motion, ejection fraction 50%. SELECTIVE CORONARY ANGIOGRAPHY: 1. Left main has an 80% and 90% stenosis at the ostium. 2. Left anterior descending has previously placed stents, these were widely patent with no significant restenosis. No disease elsewise throughout the LAD or its branches. 3. Left circumflex has moderate irregularities, but no flow-limiting stenosis. 4. Right coronary has 80% to 90% stenosis at the ostium with extreme pressure damping the catheter. PTCA STENT OF THE RCA: The stent used is 4.0 x 12 mm Vaibhav taken to 23 atmospheres. Result was 0% residual stenosis. OVERALL IMPRESSION: Successful percutaneous transluminal coronary angioplasty stent of the right coronary artery going from 80% to 90% initial stenosis to 0% residual. PLAN: PTCA stent of the left main in the near future. TRANSINT:[id number] Voice Confirmation ID: [id number] DOCUMENT ID: [id number] DELFINO GARNER MD at 1153 CC: [id number] DICTATION DATE: 07/13/17 1023 BANKING SUPERVISOR: 07/13/17 1142 DEP CLI 07/01/17 [place] [id number]
--- NOTE | ~2017-06-30 | DS ---
PATIENT:THAO BAUMANN :28 MEDICAL RECORD: [id number] DISCHARGE SUMMARY ADMISSION DATE: 06/30/17 DISCHARGE DATE: 07/01/17 DISCHARGE DIAGNOSES: 1. Unstable angina. 2. Coronary artery disease. 3. Hypertension. 4. Hyperlipidemia. 5. Percutaneous transluminal coronary angioplasty and stent, left main and right coronary artery this admission. HOSPITAL COURSE: Mr. Baumann presents with unstable angina, found to have significant disease to the RCA and left main, underwent successful PTCA and stent of above territories. He was discharged home with the addition of aspirin and Plavix to his medical regimen. He will follow up with [facility] in 1 month. TRANSINT:[id number] Voice Confirmation ID: [id number] DOCUMENT ID: [id number] DELFINO GARNER MD at 1148 CC: [id number] DICTATION DATE: 07/01/17 1236 TRANSMISSION AND COORDINATION ENGINEER: 07/01/17 1246 DIS IN 07/01/17 [place] [id number] [place] [address]
--- NOTE | ~2017-06-30 | OP ---
PATIENT NAME: THAO BAUMANN MEDICAL RECORD: [id number] :28 LOCATION:[facility] ADMISSION DATE:06/30/17 SURGEON: DELFINO GARNER MD DATE OF OPERATION: 07/01/2017 PROCEDURES: 1. PTCA stent, left main. 2. Selective coronary angiography. INDICATION: Angina and coronary artery disease. PROCEDURE IN DETAIL: After informed consent was obtained and after detailed explanation of risks, benefits as well as alternative therapies, the patient elected to proceed with angiogram and angioplasty. The left femoral area was prepped and draped in normal sterile fashion. Left femoral artery was cannulated via modified Seldinger technique with placement of 6-Chinese sheath. All catheters exchanged through this sheath. FINDINGS: The left main has 90% stenosis addressed with a 3.5 x 15 mm Boyers stent. Result was 0% residual stenosis. OVERALL IMPRESSION: Successful percutaneous transluminal coronary angioplasty stent of the left main going from 90% initial stenosis to 0% residual. TRANSINT:[id number] Voice Confirmation ID: [id number] DOCUMENT ID: [id number] DELFINO GARNER MD at 1148 CC: [id number] DICTATION DATE: 07/01/17 1237 INSTRUCTIONAL SPECIALIST: 07/01/17 1302 DIS IN 07/01/17 [place] [id number] [place] [address]
[2017-06-30 12:37] LABS: BASOPHILS 0.4 % (0-2); EOSINOPHILS 5.8 % (0-7); HEMATOCRIT 29.5 % (42.0-54.0); HEMOGLOBIN 9.4 g/dL (13.5-17.5); IMMATURE GRANULOCYTES 0.2 % (0-5); LYMPHOCYTES 30.6 % (15-50); MCH 29.6 pg (26.0-34.0); MCHC 31.9 g/dL (31.0-37.0); MCV 92.8 fL (80.0-100.0); MEAN PLATELET VOLUME 11.5 fL (7.4-10.4); MONOCYTES 8.9 % (2-11); NEUTROPHILS 54.1 % (40-80); RBC 3.18 10x6/uL (4.20-6.10); RDW 13.9 % (11.5-14.5); WBC 8.1 10x3/uL (4.8-10.8)
[2017-06-30 12:49] LABS: PLATELET COUNT 152 10x3/uL (130-400)
[2017-06-30 12:51] LABS: ALBUMIN 2.8 g/dL (3.4-5.0); ALKALINE PHOSPHATASE 97 U/L (46-116); ALT (SGPT) 14 U/L (10-68); BILIRUBIN - TOTAL 0.24 mg/dL (0.2-1.3); CALC OSMOLALITY 289 mosm/kg (275-300); CHLORIDE - SERUM 109 mmol/L (98-107); CREATININE - SERUM 2.6 mg/dL (0.6-1.3); GLUCOSE 117 mg/dL (74-106); POTASSIUM - SERUM 4.2 mmol/L (3.5-5.1); PROTEIN - SERUM 5.9 g/dL (6.4-8.2); SODIUM 142 mmol/L (136-145); UREA NITROGEN 29 mg/dL (7-18); eGFR NON AFRICAN AMERICAN 25 mL/min (90-120)
[2017-06-30 13:01] LABS: CHOL - HDL RATIO 4.3 ratio (2.3-4.9); CHOLESTEROL, TOTAL 120 mg/dL (0-200); CKMB 1.6 U/L (0.0-3.6); CREATINE KINASE 65 UL (21-232); HDL CHOLESTEROL 28 mg/dL (32-96); LDL CHOLESTEROL 52 mg/dL (0-100); LDL-HDL RATIO 1.9 ratio (1.5-3.5); TRIGLYCERIDE 204 mg/dL (30-200)
[2017-06-30 13:02] LABS: TROPONIN-I < 0.017 ng/mL (0.000-0.060)
[2017-06-30 18:02] VITALS: BP 194/85; BMI 22.5
[2017-06-30 20:00] VITALS: BP 182/86
[2017-07-01 04:00] VITALS: BP 134/61
[2017-07-01 07:44] VITALS: BP 149/64
[2017-07-01 10:26] LABS: ANION GAP 10.5 mmol/L (8-16); CALCIUM 8.8 mg/dL (8.5-10.1); CARBON DIOXIDE 25.9 mmol/L (21.0-32.0); CREATININE - SERUM 2.5 mg/dL (0.6-1.3); POTASSIUM - SERUM 4.4 mmol/L (3.5-5.1)
[2017-07-01 12:13] VITALS: BP 115/53
== END 2017-07-01 19:00 | disposition home or self-care (01) ==
LOC: OBSVTIME → D.OPS 12:03 → D.ER 12:03 → EDSTATUS 14:30 → D.ER 17:35 → D.M2 17:35 → D.ER 19:06 → D.OPS 19:06 → D.M2 19:07 → D.ER 19:07 → OBSVTIME 19:07 → D.M2 19:07 → D.M3 07-01 12:45 → D.CLR 07-01 12:45 → D.M3 07-01 12:45 → D.CLR 07-01 12:45 → D.OPS 07-01 19:00
PROVIDERS: Emergency Medicine; Internal Medicine Interventional Cardiology
DX: I25.110 Atherosclerotic heart disease of native coronary artery with unstable angina pectoris (principal); I10 Essential (primary) hypertension; E78.5 Hyperlipidemia, unspecified; Z01.812 Encounter for preprocedural laboratory examination
CPT/HCPCS: 93458; C9600 ×2

== ENCOUNTER 2017-08-29 11:06 | Observation (INO) | payer MEDICARE ==
[~2017-08-29] VITALS: Ht 177.8 cm; Wt 67.5 kg
--- NOTE | ~2017-08-29 | CN ---
PATIENT NAME:THAO BAUMANN MEDICAL RECORD: [id number] : 28 LOCATION:D. D.2121 ADMIT DATE: 08/29/17 ACCOUNT: [id number] CONSULTING PHYSICIAN: HERBERT BAUTISTA MD REFERRING PHYSICIAN: KELIN OVIEDO MD DATE OF CONSULTATION: 08/30/2017 HISTORY OF PRESENT ILLNESS: An 86-year-old gentleman with a known history of coronary artery disease, status post recent intervention to left main and ostial right, had onset of chest pain, definitely pleuritic component, has cardiac enzymes negative in spite of a creatinine of 2.9 making acute coronary syndrome less likely with negative serial enzymes. ECG without acute change. We are asked to see him concerning his cardiovascular status. PAST MEDICAL HISTORY: Includes: 1. History of coronary artery disease. 2. Hypertension. 3. Hyperlipidemia. ALLERGIES: None known. MEDICATIONS: Include Protonix 40 b.i.d., aspirin 81 every day, Neurontin 300 at bedtime, lisinopril 2.5 every day, pravastatin 40 every day, Plavix 75 every day. SOCIAL HISTORY: Nonsmoker, nondrinker, still lives at home. Does have difficulty with ADLs and actually had difficulty regaining strength back for most recent procedure. REVIEW OF SYSTEMS: The patient reports easy bruising but reports no swollen glands. The patient reports no fever, no night sweats, no significant weight gain, no significant weight loss. No significant exercise tolerance. The patient reports no dry eyes, no irritation, no vision change. Patient reports no difficulty hearing and no ear pain. Patient reports no frequent nose bleeds or nose and sinus problems. Patient reports on arm pain on exertion. No shortness of breath while lying down. No history of heart murmur. Patient reports no cough, no wheezing or coughing up blood. Patient reports no abdominal pain, no vomiting. Normal appetite. No diarrhea and not vomiting blood. No nausea and no constipation. Patient reports no incontinence. No difficulty urinating. No hematuria. No increased frequency. Patient reports no muscle aches. No weakness, no arthralgias, no back pain. No swelling of the extremities. Patient reports no abnormal mole, no jaundice, no rashes. Reports no loss of consciousness. No weakness and no numbness. No seizures, dizziness, or headaches. The patient reports no depression, no sleep disturbance, feeling safe in a relationship and no alcohol abuse. Patient reports on fatigue. Reports no runny nose or sinus pressure. No itching, no hives, and no frequent sneezing. PHYSICAL EXAMINATION: GENERAL: Elderly gentleman in no acute distress. VITAL SIGNS: Blood pressure 170/75, pulse 59 and regular. HEENT: Normocephalic, atraumatic. NECK: No JVD or bruit. HEART: Regular. A 2/6 systolic ejection murmur. LUNGS: Good air excursion. CONSULT REPORT [id number] THAO BAUMANN ABDOMEN: Soft, nontender. EXTREMITIES: Pulses 2+. There is no edema. IMPRESSION: Chest pain. Given recent intervention, lack of ECG changes, negative cardiac enzymes particularly in the face of decreased creatinine clearance, would defer any further invasive workup from cardiovascular standpoint at this time. Definite pleuritic component. We will give one dose steroids. Further recommendations based on above. TRANSINT:[id number] Voice Confirmation ID: [id number] DOCUMENT ID: [id number] HERBERT BAUTISTA MD at 1337 CC: [id number] DICTATION DATE: 08/30/17813 FUEL CELL BUILDER: 08/30/17 1139 DIS IN 08/31/17 [facility] [address] [place] [address]
--- NOTE | ~2017-08-29 | EC ---
PATIENT:THAO BAUMANN DATE OF SERVICE: 08/29/17 SEX: M MEDICAL RECORD: [id number] DATE OF : 28 LOCATION:D.M2 D.212 AGE OF PATIENT: 86 ADMISSION DATE: 08/29/17 REFERRING PHYSICIAN: INTERPRETING PHYSICIAN: HERBERT BAUTISTA MD ECHOCARDIOGRAM REPORT ECHO CHARGES 4 ECHO COMPLETE Date: 08/30 CLINICAL DIAGNOSIS: CP ECHOCARDIOGRAPHIC MEASUREMENTS (adult normal given) AC root (d.<3.7cm) 3.3 cm LV Septum d (<1.2 cm> 1.7 cm Valve Excursion 1.5 cm LV Septum (systole) 2.1 cm Left Atria (s.<4.0cm> 3.6 cm LVPW d(<1.2cm) 1.5 cm RV (d.<2.3cm) 2.4 cm LVPW (sytole) 2.2 cm LV diastole(<5.6CM) 6.1 cm MV E-F(>70mm/sec) cm LV systole 4.1 cm LVOT Diameter 1.8 cm MV exc.(>10mm) cm Est.ejection fraction (50-75%) % DOPPLER: LVIT cm/sec A 98.0 cm/sec E 80.0 cm/sec LA cm/sec RVSP 46.0 mmHg LVOT 110 cm/sec AOP1/2T m/s Asc. Ao 163 cm/sec RVOT 71.0 cm/sec RA cm/sec PA 102 cm/sec AV Gradient Peak 11.0 mmHg AV Mean 4.8 mmHg AV Area 1.8 cm MV Gradient Peak 4.9 mmHg MV Mean 1.7 mmHg MV Area cm COMMENTS: Rn Case Mgr: Keyonna STARROE Fraud Examiner: 3 Dr. Phillip TAPE# PACS Pericardial Effusion N DATE OF SERVICE: Adequate 2D echo, color-flow and spectral Doppler, M-Mode. LVH is present. LV internal dimension is normal. Wall motion normal. EF greater than 55%. Aortic valve sclerosis without stenosis on Doppler interrogation. Left atrium normal at 3.6 cm. Mitral valve shows no prolapse. Trace MR. Right-sided chambers are normal. Trace TR on color flow imaging. TRANSINT:[id number] Voice Confirmation ID: [id number] DOCUMENT ID: [id number] ECHOCARDIOGRAM REPORT [id number] BAUMANN,THAO M HERBERT BAUTISTA MD at 1337 CC: [id number] DICTATION DATE: 08/30/17 1307 3D TECHNOLOGIST: 08/30/17 1413 DIS IN 08/31/17 [facility] [address] [place] [address]
[2017-08-29 11:53] LABS: BASOPHILS 0.3 % (0-2); EOSINOPHILS 4.9 % (0-7); HEMOGLOBIN 9.8 g/dL (13.5-17.5); IMMATURE GRANULOCYTES 0.3 % (0-5); LYMPHOCYTES 33.5 % (15-50); MCH 30.2 pg (26.0-34.0); MCHC 32.7 g/dL (31.0-37.0); MCV 92.3 fL (80.0-100.0); MEAN PLATELET VOLUME 11.6 fL (7.4-10.4); MONOCYTES 6.7 % (2-11); NEUTROPHILS 54.3 % (40-80); PLATELET COUNT 174 10x3/uL (130-400); RBC 3.25 10x6/uL (4.20-6.10); RDW 14.1 % (11.5-14.5); WBC 7.6 10x3/uL (4.8-10.8)
[2017-08-29 12:08] LABS: ALBUMIN 2.8 g/dL (3.4-5.0); ALKALINE PHOSPHATASE 91 U/L (46-116); ALT (SGPT) 15 U/L (10-68); BILIRUBIN - TOTAL 0.28 mg/dL (0.2-1.3); CALC OSMOLALITY 289 mosm/kg (275-300); CALCIUM 8.9 mg/dL (8.5-10.1); CARBON DIOXIDE 22.7 mmol/L (21.0-32.0); CHLORIDE - SERUM 109 mmol/L (98-107); CREATININE - SERUM 2.9 mg/dL (0.6-1.3); GLUCOSE 94 mg/dL (74-106); POTASSIUM - SERUM 4.8 mmol/L (3.5-5.1); PROTEIN - SERUM 6.1 g/dL (6.4-8.2); SODIUM 141 mmol/L (136-145); UREA NITROGEN 39 mg/dL (7-18); eGFR NON AFRICAN AMERICAN 22 mL/min (90-120)
[2017-08-29 12:19] LABS: CKMB 2.2 U/L (0.0-3.6); CREATINE KINASE 83 UL (21-232); PRO BNP 1928 pg/mL (0-450); TROPONIN-I < 0.017 ng/mL (0.000-0.060)
[2017-08-29] MEDS ORDERED: LISINOPRIL2.5 MG PO (18:38)
[2017-08-29] MEDS ORDERED: NITROSTAT0.4 MG SL (18:39)
[2017-08-29] MEDS ORDERED: VITAMIN B-1000 MCG/M IM (18:40)
[2017-08-29 18:45] VITALS: BP 141/72; Ht 177.8 cm; Wt 67.5 kg
[2017-08-29 20:00] VITALS: BP 182/85
[2017-08-29 23:58] VITALS: BP 167/77
[2017-08-30 04:00] VITALS: BP 170/75
[2017-08-30 09:42] VITALS: BP 169/73
[2017-08-30 12:39] VITALS: BP 157/67
[2017-08-30 16:41] VITALS: BP 163/69
[2017-08-30] MEDS ORDERED: ISOSORBIDE MONO30 M1 PO (17:13)
[2017-08-30] MEDS ORDERED: CATAPRES0.2 MG PO (17:13)
[2017-08-30] MEDS ORDERED: METOPROLOL TART25 MG PO (17:15)
[2017-08-30 19:00] VITALS: BP 168/69
[2017-08-31 04:00] VITALS: BP 147/64
[2017-08-31] MEDS ORDERED: DETROL LA2 MG PO (08:22)
[2017-08-31] MEDS ORDERED: ULTRAM50 MG PO (08:22)
[2017-08-31 08:35] VITALS: BP 151/68
== END 2017-08-31 12:57 | disposition home or self-care (01) ==
LOC: D.ER 11:06 → OBSVTIME 15:53 → D.M2 15:53
PROVIDERS: Nurse Practitioner Family
DX: R07.89 Other chest pain (principal); K21.9 Gastro-esophageal reflux disease without esophagitis; I25.10 Atherosclerotic heart disease of native coronary artery without angina pectoris; Z98.61 Coronary angioplasty status; I12.9 Hypertensive chronic kidney disease with stage 1 through stage 4 chronic kidney disease, or unspecified chronic kidney disease; N18.4 Chronic kidney disease, stage 4 (severe); E78.5 Hyperlipidemia, unspecified; N32.81 Overactive bladder; D51.9 Vitamin B12 deficiency anemia, unspecified

== ENCOUNTER → 2017-10-01 08:56 | Outpatient (CLI) | payer MEDICARE ==
[2017-08-29 18:45] VITALS: BMI 21.9
[~2017-10-01 08:56] MED LIST changes: +DETROL LA2 MG PO; +LISINOPRIL2.5 MG PO; +METOPROLOL TART25 MG PO; +NITROSTAT0.4 MG SL; +ULTRAM50 MG PO; +VITAMIN B-1000 MCG/M IM
== END | disposition home or self-care (01) ==
LOC: D.CT 08:56
DX: R10.30 Lower abdominal pain, unspecified (principal)

== ENCOUNTER → 2017-11-05 08:29 | Outpatient (CLI) | payer MEDICARE ==
[2017-08-29 18:45] VITALS: BMI 21.9
[~2017-11-05 08:29] MED LIST changes: +NEURONTIN600 MG PO; +NIFEDIPINE ER60 MG PO
== END | disposition home or self-care (01) ==
LOC: D.NM 08:15
DX: M25.551 Pain in right hip (principal)

== ENCOUNTER → 2017-12-20 18:08 | Outpatient (CLI) | payer MEDICARE ==
[2017-08-29 18:45] VITALS: BMI 21.9
== END | disposition home or self-care (01) ==
LOC: D.LABREF 18:08
DX: M25.551 Pain in right hip (principal); Z11.8 Encounter for screening for other infectious and parasitic diseases

== ENCOUNTER 2018-01-07 06:35 | Outpatient (CLI) | payer MEDICARE ==
[~2018-01-07] VITALS: Ht 177.8 cm; Wt 71.2 kg
[2018-01-07] VITALS (7 sets, daily range): BP systolic 179–202; BP diastolic 71–88; Ht 177.8 cm; Wt 71.2 kg
--- NOTE | ~2018-01-07 | HEMODYNAMI ---
PATIENT:THAO BAUMANN MEDICAL RECORD: [id number] : 28 LOCATION:[facility]UELL[facility]- ADMISSION DATE: 01/07/18 Generatedon:01/07/201814:32 Patient name: THAO BAUMANN Patient #: [id number] : 1930 Date of study: 01/07/2018 Page: Of Hemodynamic Procedure Report Patient Data Patient Demographics Procedure consent was obtained First Name: THAO Gender: Male Last Name: PASTOR : 1930 Middle Initial: M Age: 87 year(s) Patient #: [id number] Race: SSN: [id number] Additional ID: [id number] Contact details Address: [address] [place] [address] ROAD State: [place] City: [place] Zip code: [address] Past Medical History Allergies: No known allergies Admission Admission Data Admission Date: 01/07/2018 Admission Time: 7:55 Room #: KINDRA Procedure Procedure Types Cath Procedure Diagnostic Procedure LH LH w/Coronaries Sedation Charges Moderate Sedation up to 15 minutes Peripheral Cath Diagnostic Procedure Cath Peripheral Renal Arteriogram Procedure Description Procedure Date Procedure Date: 01/07/2018 Procedure Start Time: 14:16 Procedure End Time: 14:27 Procedure Staff Name Function Jarod Gonzalez MD Performing Physician Ean Miner RT Bankruptcy Manager Vibha Maddox RT Monitor Luis Ramey RN Nurse Clarice Chung RT Scrub Procedure Data Cath Procedure Fluoroscopy Diagnostic fluoroscopy Total fluoroscopy Time: 2 time: 2 min min Diagnostic fluoroscopy Total fluoroscopy dose: 524 dose: 524 mGy mGy Contrast Material Contrast Material Type Amount (ml) Isovue 300 74 Entry Location Entry Primary Successful Side Size Upsize Upsize Entry Closure Succes sful Closure Location (Fr) 1 (Fr) 2 (Fr) Remarks Device Remarks Femoral Right 5 Fr Exoseal artery Estimated blood loss: 5 ml Diagnostic catheters Device Type Used For End Catheter Placement MULTIPACK Pigtail 5 Fr LV Angiography catheter MULTIPACK JL 4.0 5Fr Left Coronary catheter Angiography MULTIPACK 3DRC 5Fr Right Coronary catheter Angiography MULTIPACK 3DRC 5Fr Renal catheter arteriography with flush -selective Procedure Complications No complications Procedure Medications Medication Administration Route Dosage Oxygen etCO2 Nasal cannula 2 l/min Lidocaine 2% added to field 20 Heparin Flush Bag added to field 2 bags (1000units/500ml NS) 0.9% NaCl I.V. 100 ml/hr Versed I.V. 0.5 mg Fentanyl I.V. 25 mcg Hemodynamics Rest Heart Rate: 62 (bpm) Snapshots Pre Cath Intra NCS Post Cath Vital Signs Time Heart Resp SPO2 etCO2 NIBP (mmHg) Rhythm Pain Sedation Rate (ipm) (%) (mmHg) Status Level (bpm) 13:42:26 69 14 100 0 222/95(176) NSR 0 (11) 9(A) , No pain 13:47:19 62 12 99 0 218/88(161) NSR 0 (11) 9(A) , No pain 13:52:10 62 14 98 2.2 212/88(160) NSR 0 (11) 9(A) , No pain 13:56:59 61 15 95 0 195/80(143) NSR 0 (11) 9(A) , No pain 14:01:48 63 10 96 0 196/88(157) NSR 0 (11) 9(A) , No pain 14:06:37 64 10 97 0 203/91(159) NSR 0 (11) 9(A) , No pain 14:12:13 63 10 99 0 207/96(172) NSR 0 (11) 9(A) , No pain 14:17:05 65 10 100 0 209/95(155) NSR 0 (11) 9(A) , No pain 14:22:46 66 10 97 12.7 226/98(168) NSR 0 (11) 9(A) , No pain 14:27:42 63 11 92 36.8 230/98(163) NSR 0 (11) 9(A) , No pain Medications Time Medication Route Dose Verified Delivered Reason Notes Eff ectiveness by by 13:55:56 Oxygen etCO2 2 Jarod Smith used for Nasal l/min Carlos Ramey computer forensic examiner cannula 13:56:07 Lidocaine 2% added 20ml Jarod Olivera for local to vial Carlos Gonzalez MD anesthetic field 13:56:15 Heparin Flush added 2 Jarod Olivera used for Bag to bags Carlos Gonzalez MD procedure (1000units/500ml field NS) 13:56:23 0.9% NaCl I.V. 100 Jarod Smith Per ml/hr Carlos Ramey RN physician 13:59:31 Versed I.V. 0.5 Jarod Smith for mg Carlos Ramey RN sedation 13:59:38 Fentanyl I.V. 25 Jarod Smith for mcg Carlos Ramey RN sedation Procedure Log Time Note 13:28:21 Ean Suit RT(R) sent for patient. Start room use. 13:28:22 Time tracking: Regular hours (M-F 7:00 - 5:00) 13:28:27 Plan of Care:Hemodynamics will remain stable., Cardiac rhythm will remain stable., Comfort level will be maintained., Respiratory function will remain adequate., Patient/ family verbilizes understanding of procedure., Procedure tolerated without complication., Recovers from procedure without complications.. 13:32:33 Patient received from ED to CCL 1 Alert and oriented. Tansferred to table in Supine position. 13:32:38 Warm blankets applied, and nick hugger turned on for patient comfort. 13:32:39 Correct patient and procedure confirmed by team. 13:32:40 Signed procedure consent form obtained from patient. 13:32:41 ECG and BP/O2 sat monitors applied to patient. 13:32:43 Full Disclosure recording started 13:40:47 Vital chart was started 13:40:54 Rhythm: sinus rhythm 13:40:59 H&P Date Dictated: 01/07/2018 Within 30 days and on chart., ER History on chart.. 13:41:00 Pre-procedure instructions explained to patient. 13:41:02 Pre-op teaching completed and patient verbalized understanding. 13:41:08 Family in waiting room. 13:41:10 Patient NPO since Midnight. 13:43:57 Patient allergic to No known allergies 13:43:59 Is the patient allergic to Iodine/contrast media? No. 13:44:01 Is patient on blood thinner?No 13:44:05 Patient diabetic? No. 13:45:57 Baseline sample Acquired. 13:46:17 Previous problem with sedation/anesthesia? No ? 13:46:18 Snore? Yes 13:46:19 Sleep apnea? No 13:46:20 Deviated septum? No 13:46:21 Opens mouth fully? Yes 13:46:21 Sticks out tongue? Yes 13:46:23 Airway obstruction? No ? 13:46:27 Dentures? Yes out 13:46:30 Pre procedure: right dorsailis pedis pulse 2+ Normal; easily identifiable; not easily obliterated 13:46:33 Patient pain scale 0/10 ?. 13:46:49 IV patent on arrival in right forearm with 0.9% NaCl at [facility]. 13:46:55 Lab results completed and on chart. 13:47:06 Right groin area was prepped with chlora-prep and draped in sterile fashion 13:47:07 Alarms reviewed by R. N. 13:47:07 Sharps counted by scrub and verified by R.N. 13:47:12 Use device set Femoral Dx 13:47:12 ACIST Syringe (74245) opened to sterile field. 13:47:13 Bag Decanter (2002S) opened to sterile field. 13:47:13 Medline Cath Pack ([id number]) opened to sterile field. 13:47:14 DIAGNOSTIC WIRE .035 260cm J wire (377632) opened to sterile field. 13:47:15 ACIST Hand Control (20895) opened to sterile field. 13:47:16 ACIST Manifold (04035) opened to sterile field. 13:47:16 DIAGNOSTIC Multipack 5Fr catheter set ([id number]) opened to sterile field. 13:47:17 Tegaderm 4 x 4 (1626W) opened to sterile field. 13:47:18 SHEATH Prelude 5Fr 0.035 ([id number]-4Q-72-035) opened to sterile field. 13:49:24 Zero performed for pressure channel P1 13:50:08 Zero performed for pressure channel P1 13:55:56 Oxygen 2 l/min etCO2 Nasal cannula was administered by Luis Ramey RN; used for procedure; 13:56:07 Lidocaine 2% 20ml vial added to field was administered by Jarod Gonzalez MD; for local anesthetic; 13:56:15 Heparin Flush Bag (1000units/500ml NS) 2 bags added to field was administered by Jarod Gonzalez MD; used for procedure; 13:56:23 0.9% NaCl 100 ml/hr I.V. was administered by Luis Ramey RN; Per physician; ::23 Zero performed for pressure channel P1 13:56:30 Final Timeout: patient, procedure, and site verified with staff and physician. All members of the team are in agreement. 13:56:31 Right groin site verified by team. 13:56:35 Physical assessment completed. ASA score P 2 - A patient with mild systemic disease as per Jarod Gonzalez MD. 13:56:38 Sedation plan: IV Moderate Sedation Medication:Versed, Fentanyl :59:31 Versed 0.5 mg I.V. was administered by Luis Ramey RN; for sedation; : Fentanyl 25 mcg I.V. was administered by Luis Ramey RN; for sedation; 14:16:28 Procedure started. 14:16:30 Local anesthetic to right femoral artery with Lidocaine 2% by Jarod Gonzalez MD.INITIAL ACCESS ONLY 14:17:05 A 5 Fr sheath was inserted into the Right Femoral artery 14:17:21 A MULTIPACK Pigtail 5 Fr catheter was advanced over the wire and used for LV Angiography. 14:17:36 LV gram done using KAM 14:17:40 Injector settings: Ml/sec: 10, Volume: 20, 14:17:52 EF : 40 % 14:17:55 Catheter removed. 14:18:00 A MULTIPACK JL 4.0 5Fr catheter was advanced over the wire and used for Left Coronary Angiography. 14:19:57 Catheter removed. 14:20:02 A MULTIPACK 3DRC 5Fr catheter was advanced over the wire and used for Right Coronary Angiography. 14:21:57 A MULTIPACK 3DRC 5Fr catheter was advanced over the wire and used for Renal arteriography with flush -selective. 14:23:13 Sheath removed intact; hemostasis achieved with Exoseal to the Right Femoral artery. 14:23:16 Procedure ended.(Physican Out) ::28 Fluoroscopy time 02.00 minutes. ::31 Fluoroscopy dose: 524 mGy 14:: Flurop Dose total: 524 14:23:35 Contrast amount:Isovue 300 74ml. 14:23:37 Sharps counted by scrub and verified by R.N. 14:23:38 Insertion/operative site no bleeding no hematoma. 14:23:41 Post-op/insertion site Right Femoral artery dressed using a 4 x 4 and Tegaderm. 14:23:44 Post right femoral artery:stable, clean and dry 14:23:46 Post Procedure Pulses reassessed and unchanged 14:23:50 Post-procedure physical assessment completed. ASA score P 2 - A patient with mild systemic disease as per Jarod Gonzalez MD. 14:23:53 Post procedure rhythm: unchanged. 14:23:59 Estimated blood loss: 5 ml 14:24:01 Post procedure instruction explained to patient.Patient verbalizes understanding. 14:24:01 Patient needs reinforcement of post procedure teaching. 14:24:30 Procedure type changed to Cath procedure, Diagnostic procedure, LHC, LHC w/Coronaries, Sedation Charges, Moderate Sedation up to 15 minutes, Peripheral Cath Diagnostic Procedure, Cath Peripheral, Renal Arteriogram 14:24:59 See physician's report for complete and final results. 14:25:10 EXOSEAL 5Fr (EX500) opened to sterile field. 14:25:25 Procedure and supply charges have been captured, reviewed, submitted and are correct. 14:25:29 Procedure Complication : No complications 14:26:08 Post right femoral artery:hematoma 14:26:53 Femstop placed over the right femoral artery at 180 mmHg. Hemostasis achieved. 14:27:09 Vital chart was stopped 14:27:13 Report given to Pre/Post Procedure Room. 14:27:15 Patient transfered to Pre/Post Procedure Room with Stretcher. 14:27:53 Procedure ended. 14:27:53 Full Disclosure recording stopped 14:27:56 End room use (Document Last) Device Usage Item Name Manufacture Quantity Catalog Number Hospital Part Current M inimal Lot# / Charge Number Stock Stock Serial# Code ACIST Syringe Acist 1 80527 [id number] 399882 [id number] 2 0 (56655) [employer] Bag Decanter Microtek 1 [id number] 63227 938743 5 () [employer] Inc. Medline Cath Cardinal 1 [id number] 754271 20792 728416 5 [facility] ([id number]) DIAGNOSTIC WIRE [address] 1 127488 990050 667166 431910 3 0 .035 260cm J wire (384522) ACIST Hand Acist 1 52672 561390 202109 754091 5 Control (47093) [employer] ACIST Manifold Acist 1 38944 518341 193011 167488 5 (13510) [employer] DIAGNOSTIC Cardinal 1 [id number] 465652 21852 600467 3 0 Multipack 5Fr Health catheter set ([id number]) Tegaderm 4 x 4 3M 1 1626W 779466 957906 224810 5 (1626W) SHEATH Prelude Merit 1 OTI-2Y-71-035 684561 718074 392655 5 5Fr 0.035 Medical ([id number]) MULTIPACK Cardinal 1 [id number] 5 Pigtail 5 Fr Health catheter MULTIPACK JL Cardinal 1 [id number] 5 4.0 5Fr Health catheter MULTIPACK 3DRC Cardinal 1 967339 5 5Fr catheter Health EXOSEAL 5Fr Cardinal 1 EX500 473909 868849 303875 1 0 (EX500) Health Signature Audit [place] Stage Time Signature Unsigned Intra-Procedure 01/07/2018 Vibha 2:32:38 PM Counts RT(R) Signatures Monitor : Vibha Signature : Counts RT Date : Time : [address] [address]
--- NOTE | ~2018-01-07 | OP ---
PATIENT NAME: THAO BAUMANN MEDICAL RECORD: [id number] :[birth year] LOCATION:[facility] Magdaleno[facility]05 ADMISSION DATE:01/07/18 SURGEON: DELFINO GARNER MD DATE OF OPERATION: 01/07/2018 PROCEDURES: 1. Left heart catheterization. 2. Selective coronary angiography. 3. Left ventriculogram. 4. Bilateral selective renal angiography. INDICATION: Angina and coronary artery disease. PROCEDURE IN DETAIL: After informed consent was obtained and after a detailed explanation of risks, benefits as well as alternative therapies, the patient elected to proceed with angiogram and heart catheterization. The right femoral area was prepped and draped in normal sterile fashion. The right femoral artery was cannulated via modified Seldinger technique with the placement of 6-Korean sheath. All catheters exchanged through this sheath. FINDINGS: Left ventriculogram was performed in standard 30-degree KAM view, reveals global hypokinesis throughout all segments. Overall ejection fraction estimated at 40%. SELECTIVE CORONARY ANGIOGRAPHY: 1. Left main is with no significant angiographic disease. 2. Left anterior descending has previously placed stents in the LAD and LAD diagonal. These are widely patent with no significant restenosis. No disease elsewise. 3. Left circumflex has mild irregularities, but no flow-limiting stenosis. 4. Right coronary has previously placed stents. These are widely patent with no significant restenosis. No disease elsewise. 5. There was subselection of each right renal artery. There is no significant pressure damping at the ostium. No significant renal artery stenosis. Left renal artery is a solitary artery off the aorta with no significant pressure damping, no significant renal artery stenosis. OVERALL IMPRESSION: Wide patency of all the previously placed stents. No significant renal artery stenosis. Standard medical management on treatment of the hypertension. TRANSINT:[id number] Voice Confirmation ID: [id number] DOCUMENT ID: [id number] DELFINO GARNER MD at 1843 CC: [id number] DICTATION DATE: 01/07/18 1428 GEOPHYSICS TEACHER: 01/07/18 1503 DIS IN 01/07/18 [address] [address] [place] [address]
[~2018-01-07 06:35] MED LIST changes: -NEURONTIN600 MG PO; -NIFEDIPINE ER60 MG PO
[2018-01-07 07:14] LABS: BASOPHILS 0.2 % (0-2); EOSINOPHILS 3.2 % (0-7); HEMATOCRIT 30.1 % (42.0-54.0); HEMOGLOBIN 9.7 g/dL (13.5-17.5); IMMATURE GRANULOCYTES 0.2 % (0-5); LYMPHOCYTES 36.8 % (15-50); MCH 30.3 pg (26.0-34.0); MCHC 32.2 g/dL (31.0-37.0); MCV 94.1 fL (80.0-100.0); MEAN PLATELET VOLUME 12.6 fL (7.4-10.4); MONOCYTES 8.5 % (2-11); NEUTROPHILS 51.1 % (40-80); PLATELET COUNT 148 10x3/uL (130-400); RDW 14.1 % (11.5-14.5); WBC 9.2 10x3/uL (4.8-10.8)
[2018-01-07 08:26] LABS: ALBUMIN 2.8 g/dL (3.4-5.0); ALKALINE PHOSPHATASE 92 U/L (46-116); ALT (SGPT) 17 U/L (10-68); BILIRUBIN - TOTAL 0.43 mg/dL (0.2-1.3); CALC OSMOLALITY 288 mosm/kg (275-300); CALCIUM 8.3 mg/dL (8.5-10.1); CARBON DIOXIDE 23.2 mmol/L (21.0-32.0); CHLORIDE - SERUM 110 mmol/L (98-107); CREATININE - SERUM 3.6 mg/dL (0.6-1.3); GLUCOSE 97 mg/dL (74-106); POTASSIUM - SERUM 5.2 mmol/L (3.5-5.1); PROTEIN - SERUM 5.4 g/dL (6.4-8.2); SODIUM 140 mmol/L (136-145); UREA NITROGEN 40 mg/dL (7-18); eGFR NON AFRICAN AMERICAN 17 mL/min (90-120)
[2018-01-07 08:34] LABS: CREATINE KINASE 118 UL (21-232); PRO BNP 2715 pg/mL (0-450); TROPONIN-I < 0.017 ng/mL (0.000-0.060)
[2018-01-07] MEDS ORDERED: NIFEDIPINE ER60 MG PO (16:46)
[2018-01-11] MEDS ORDERED: NEURONTIN600 MG PO (15:01)
== END 2018-01-07 18:10 | disposition home or self-care (01) ==
LOC: OBSVTIME → D.ER 06:35 → OBSVTIME 07:55 → D.CLR 07:55 → D.EDHOLD 07:55 → D.ER 07:55 → D.EDHOLD 07:55 → D.CLR 08:13 → D.EDHOLD 08:13 → EDSTATUS 12:00 → D.ER 13:25 → D.CLR 14:49 → D.ER 18:10 → D.CLR 18:10
PROVIDERS: Family Medicine
DX: I25.110 Atherosclerotic heart disease of native coronary artery with unstable angina pectoris (principal); Z95.5 Presence of coronary angioplasty implant and graft; I10 Essential (primary) hypertension

== ENCOUNTER → 2018-01-12 08:00 | Outpatient (CLI) | payer MEDICARE ==
[2018-01-07 08:22] VITALS: BMI 21.9
[~2018-01-12 08:00] MED LIST changes: +NEURONTIN600 MG PO; +NIFEDIPINE ER60 MG PO
[2018-01-12 12:10] LABS: BASOPHILS 0.3 % (0-2); EOSINOPHILS 3.2 % (0-7); HEMATOCRIT 31.3 % (42.0-54.0); IMMATURE GRANULOCYTES 0.3 % (0-5); LYMPHOCYTES 38.4 % (15-50); MCH 30.3 pg (26.0-34.0); MCHC 31.9 g/dL (31.0-37.0); MCV 94.8 fL (80.0-100.0); MEAN PLATELET VOLUME 11.6 fL (7.4-10.4); NEUTROPHILS 51.8 % (40-80); RDW 13.8 % (11.5-14.5); WBC 10.3 10x3/uL (4.8-10.8)
[2018-01-12 12:12] LABS: PLATELET COUNT 181 10x3/uL (130-400)
[2018-01-12 12:22] LABS: INR 1.04 (0.85-1.17); PROTIME 13.2 SECONDS (11.6-15.0)
[2018-01-12 12:23] LABS: APTT 27.1 SECONDS (22.8-39.4)
[2018-01-12 12:29] LABS: CALCIUM 8.9 mg/dL (8.5-10.1); CARBON DIOXIDE 25.8 mmol/L (21.0-32.0); CREATININE - SERUM 3.4 mg/dL (0.6-1.3); POTASSIUM - SERUM 5.8 mmol/L (3.5-5.1)
[2018-01-12 12:52] LABS: APPEARANCE CLEAR (CLEAR); COLOR YELLOW (YELLOW); NITRITE NEGATIVE (NEGATIVE); PROTEIN 3+ mg/dL (NEGATIVE)
[2018-01-12 12:53] LABS: BACTERIA FEW /hpf (NONE SEEN); BILIRUBIN NEGATIVE (NEGATIVE); EPITHELIAL CELLS OCC /hpf (0-5); GLUCOSE NEGATIVE (NEGATIVE); KETONE NEGATIVE (NEGATIVE); MUCUS <1+ /lpf (NONE SEEN); RED CELLS - URINE RARE /hpf (0-5); UROBILINOGEN NORMAL (NORMAL); WHITE CELLS - URINE RARE /hpf (0-5)
== END | disposition home or self-care (01) ==
LOC: D.OPS 08:00 → D.SDCHOLD 01-17 07:30 → EDSTATUS 01-17 10:00
PROVIDERS: Orthopaedic Surgery
DX: T84.84XA Pain due to internal orthopedic prosthetic devices, implants and grafts, initial encounter (principal); Z01.810 Encounter for preprocedural cardiovascular examination; Z01.811 Encounter for preprocedural respiratory examination; Z01.812 Encounter for preprocedural laboratory examination; Z53.9 Procedure and treatment not carried out, unspecified reason

== ENCOUNTER → 2018-02-10 12:17 | Outpatient (CLI) | payer MEDICARE ==
[2018-01-07 08:22] VITALS: BMI 21.9
== END | disposition home or self-care (01) ==
LOC: D.US 12:17
DX: I12.9 Hypertensive chronic kidney disease with stage 1 through stage 4 chronic kidney disease, or unspecified chronic kidney disease (principal); N18.4 Chronic kidney disease, stage 4 (severe)

== ENCOUNTER 2018-04-05 08:43 | Inpatient (IN) | payer MEDICARE ==
[~2018-04-05] VITALS: Ht 177.8 cm; Wt 70.9 kg
[2018-04-05] VITALS (7 sets, daily range): BP systolic 110–151; BP diastolic 56–74; Ht 177.8 cm; Wt 70.9 kg
--- NOTE | ~2018-04-05 | HP ---
PATIENT: THAO BAUMANN MEDICAL RECORD: [id number] ACCOUNT: [id number] LOCATION:[address] : [birth year] ADMISSION DATE: 04/06/18 PCP: KELIN OVIEDO MD HISTORY AND PHYSICAL EXAMINATION CHIEF COMPLAINT: Chest pain and shortness of breath. HISTORY: This is an 87-year-old male with a known history of coronary artery disease, who presents with chest pain and shortness of breath since yesterday. He has taken 5 nitro and his nitro will stop his pain. In the ER, he was found to be anemic with hemoglobin of 8.6 and hematocrit of 26.4. Basic metabolic panel showed potassium of 5.2, BUN 54, and creatinine 4.2. His troponin was less than 0.017. With his chest pain, anemia, and [id number] renal insufficiency, he is admitted. PAST MEDICAL AND SURGICAL HISTORY: He has hypertension, coronary artery disease, osteoarthritis, reflux, peptic ulcer disease, BPH, skin cancer, and peripheral neuropathy. He was hospitalized at [facility] in April of 2017 and found to have UTI. His anemia workup then showed normal iron, but a B12 level of 201. He was evaluated by neurology then and he has peripheral neuropathy. PAST SURGICAL HISTORY: Hernia repair, appendectomy, cholecystectomy, lumbar surgery times 2, bilateral total knee arthroplasty, right total hip arthroplasty, right total shoulder arthroplasty, and TURP. HABITS: Former smoker. No alcohol or drugs. SOCIAL HISTORY: He is and retired. FAMILY HISTORY: Noncontributory. REVIEW OF SYSTEMS: GENERAL: No major weight changes. HEENT: No particular sinus or allergy problems. RESPIRATORY: No history of COPD or emphysema. CARDIAC: See above history with his coronary artery disease. He has stents. He sees Dr. Gonzalez. GASTROINTESTINAL: He has had reflux and some constipation. GENITOURINARY: History of BPH, status post TURP, doing fairly well with that. MUSCULOSKELETAL: He has arthritic aches and pains, especially in his hips, legs, and knees. NEUROLOGIC: No migraines. No seizures. PSYCHIATRIC: Denies depression or melancholia. HOME MEDICATIONS: Include pravastatin 40 mg a day, clonidine 0.2 mg twice a day, metoprolol 25 mg twice a day, nifedipine 60 mg once a day, isosorbide mononitrate 30 mg once a day, aspirin 81 mg once a day, gabapentin 600 mg at bedtime, Protonix 40 mg twice a day, and B12 injections once a month given by his . PHYSICAL EXAMINATION: VITAL SIGNS: Temperature 97.9, pulse 86, respirations 20, blood pressure 121/71, and O2 sat 96%. GENERAL: He is awake and alert. He does not appear in distress. HISTORY AND PHYSICAL [id number] THAO BAUMANN HEENT: Grossly within normal limits. NECK: Supple. HEART: Regular rate and rhythm without murmur. LUNGS: Fairly clear. ABDOMEN: Soft, flat, and nontender. EXTREMITIES: Edema 1+. RECTAL: Not done. LABORATORIES: CBC with white count of 9900, hemoglobin 8.6, hematocrit 26.4, and MCV is normal. Basic metabolic panel is okay except potassium 5.2, BUN 54, and creatinine 4.2. Liver functions are normal. INR 1.05. Troponin less than 0.017. ASSESSMENT: 1. Chest pain in a patient with known coronary disease. 2. Acute kidney injury on chronic kidney disease. He is followed by Dr. Barraza for his chronic kidney disease. Nephrology is consulted. 2. B12 deficiency anemia. We will check B12 level, but also check iron. His anemia could also be due to his kidney disease. Cardiology has also been consulted. Other tests or procedures as warranted. TRANSINT:[id number] Voice Confirmation ID: [id number] DOCUMENT ID: [id number] KELIN OVIEDO MD at 0840 CC: [id number] DICTATION DATE: 04/05/181903 GLASS MECHANIC: 04/05/181929 [facility] [place] [facility] [address] [place] [address]
--- NOTE | ~2018-04-05 | MORECARE ---
CASE MANAGEMENT DISCHARGE SUMMARY PATIENT: THAO BAUMANN UNIT: [id number] ADM DATE: 04/06/18 AGE: 87 : 29 SEX: M ROOM/BED: D.2118 AUTHOR: SABRINA CORTEZ PHYSICIAN: REFERRING PHYSICIAN: KELIN OVIEDO MD DATE OF SERVICE: 04/08/18 Discharge Plan Patient Name: THAO BAUMANN [facility] [facility] 1930 Planned Disposition: Home Anticipated Discharge Date: 04/08/18 Discharge Date: 04/08/2018 Expected LOS: 2 Initial Reviewer: [email or web address] Initial Review Date: 04/08/2018 Generated: 04/08/18 6:35 pm DCPIA - Discharge Planning Initial Assessment Updated by [email or web address]: Benedict Muro on 04/08/18 5:34 pm * Is the patient Alert and Oriented? Yes * How many steps to enter\exit or inside your home? 3-O / 2-I * PCP DR. OVIEDO * [facility] [place] OR [facility] MAIL ORDER * Preadmission Environment Home with Family * ADLs Independent * Equipment Oxygen Walker * Other Equipment HOME OXGYEN ONLY UNKNOWN MEDICAL EQUIPMENT PROVIDER * List name and contact numbers for known caregivers / representatives who currently or will assist patient after discharge: DIVYA BAUMANN, SPOUSE, * Verbal permission to speak to the caregivers and representatives has been obtained from the patient. N/A * Community resources currently utilized None * Please name any agencies selected above. NONE * Additional services required to return to the preadmission environment? No * Can the patient safely return to the preadmission environment? Yes * Has this patient been hospitalized within the prior 30 days at any hospital? No Patient Name: THAO BAUMANN Page [id number] at 1735 All edits/amendments must be made on the electronic document DICTATION DATE: 04/08/181734 PUPPET ENGINEER: ROWENA 04/08/181734 RPT#: [id number] DC DATE:04/08/18 STATUS: DIS IN [facility] [address] [place] [address] END OF REPORT
--- NOTE | ~2018-04-05 | MORECARE ---
CASE MANAGEMENT DISCHARGE SUMMARY PATIENT: THAO BAUMANN UNIT: [id number] ADM DATE: 04/06/18 AGE: 87 : 29 SEX: M ROOM/BED: D.4666 AUTHOR: SABRINA CORTEZ PHYSICIAN: REFERRING PHYSICIAN: KELIN OVIEDO MD DATE OF SERVICE: 04/08/18 Discharge Plan Patient Name: THAO BAUMANN Facility: [facility]:[place] : 1930 Planned Disposition: Home Anticipated Discharge Date: 04/08/18 Discharge Date: 04/08/2018 Expected LOS: 2 Initial Reviewer: [email or web address] Initial Review Date: 04/08/2018 Generated: 04/08/18 6:44 pm Comments DCP- Discharge Planning Updated by [email or web address]: Benedict Muro on 04/08/18 4:[address] Patient Name: THAO BAUMANN Admission Status: ER Accout number: [id number] Admission Date: 04-06-2018 : 1930 Admission Diagnosis:UNSTABLE ANGINA Attending: KELIN OVIEDO Current LOS: 2 Anticipated DC Date: 04-08-2018 Planned Disposition: Home Primary Insurance: MEDICARE A & B Discharge Planning Comments: CM MET WITH PT IN ROOM TO DISCUSS DISCHARGE PLANNING AND NEEDS. PT REPORTS LIVING AT HOME INDEPENDENTLY WITH SPOUSE. PT HAS HOME OXGYEN AND WALKER FROM UNKNOWN MEDICAL EQUIPMENT PROVIDER. PT HAS NO OUTSIDE SERVICES ASSISTING IN THE HOME. CM DISCUSSED AVAILABILITY OF HOME HEALTH, REHAB SERVICES AND MEDICAL EQUIPMENT. PT DENIES DISCHARGE NEEDS, REPORTS HIS WILL PICK HIM UP FOR DISCHARGE HOME. Supervising Film Or Videotape Editor: Benedict Muro DCPIA - Discharge Planning Initial Assessment Updated by [email or web address]: Benedict Muro on 04/08/18 5:34 pm * Is the patient Alert and Oriented? Yes * How many steps to enter\exit or inside your home? 3-O / 2-I * PCP DR. OVIEDO * Pharmacy [facility] IN [place] OR [facility] MAIL ORDER * Preadmission Environment Home with Family * ADLs Independent * Equipment Oxygen Walker * Other Equipment HOME OXGYEN ONLY UNKNOWN MEDICAL EQUIPMENT PROVIDER * List name and contact numbers for known caregivers / representatives who currently or will assist patient after discharge: DIVYA BAUMANN, SPOUSE, * Verbal permission to speak to the caregivers and representatives has been obtained from the patient. N/A * Community resources currently utilized None * Please name any agencies selected above. NONE * Additional services required to return to the preadmission environment? No * Can the patient safely return to the preadmission environment? Yes * Has this patient been hospitalized within the prior 30 days at any hospital? No Last DP export: 04/08/18 4:35 Patient Name: THAO BAUMANN Page [phone] at 1744 All edits/amendments must be made on the electronic document DICTATION DATE: 04/08/181743 SCREEN PRINTING INSPECTOR: ROWENA 04/08/181743 RPT#: [id number] [place] DATE:04/08/18 STATUS: DIS IN [facility] [address] [place] [address] END OF REPORT
--- NOTE | ~2018-04-05 | CN ---
PATIENT NAME:THAO BAUMANN MEDICAL RECORD: [id number] : 28 LOCATION:D. D.2118 ADMIT DATE: 04/05/18 ACCOUNT: [id number] CONSULTING PHYSICIAN: DELFINO GARNER MD REFERRING PHYSICIAN: KELIN OVIEDO MD DATE OF CONSULTATION: 04/05/2018 CARDIOLOGY CONSULT ADMITTING DIAGNOSES: 1. Angina. 2. Coronary artery disease. 3. Previous cardiac stenting. 4. Hypertension. 5. Renal failure, [id number]. HISTORY OF PRESENT ILLNESS: Mr. Baumann presents with increasing anginal symptomatology. He does have a cardiac history, last cardiac stent was in 2017. The chest pain has been present for the past day in an increasing fashion. His EKG is with no acute ST-T changes. His troponin is normal at 0.17. He does have lfdns-[id number] renal insufficiency, creatinine of 4.2, hemoglobin of 8.6. He is seen by renal. PHYSICAL EXAMINATION: GENERAL APPEARANCE: Well-nourished, well-developed, appears stated age. Level of distress, comfortable. PSYCHIATRIC: Mental status, alert, normal affect. Orientation, oriented to time, place and person. EYES: Lids and conjunctiva, noninjected. No discharge, no pallor. ENT: Lips, teeth, gums, normal dentition. Oropharynx, no cyanosis, no pallor. NECK: Carotid arteries, bilateral normal upstroke, no bruits, no thrills. JUGULAR VEINS: No jugular venous pressure or distention. CERVICAL LYMPH NODES: Nontender, nonenlarged. THYROID: Not enlarged. Nontender. No nodules. LUNGS: Respiratory effort, unlabored. CHEST: Normal curvature. No thoracic deformity. No chest wall tenderness. Percussion, resonant. Auscultation, clear. No wheezes, no rales, no rhonchi. CARDIOVASCULAR: Precordial exam, nondisplaced. No heaves or pericardial thrills. Rate and rhythm, regular. Heart sounds, normal S1, normal S2. No S3, no gallop, no rub. Systolic murmur, not heard. Diastolic murmur, not heard. EXTREMITIES: No cyanosis, no edema. Peripheral pulses, full and equal in all extremities, except as noted. No bruits appreciated. ABDOMEN: Soft, nondistended. Normal aorta. No bruit. Nontender. No masses. Liver, nontender, no hepatomegaly. Spleen, nontender, no splenomegaly. MUSCULOSKELETAL: No joint tenderness. No joint swelling. No erythema. NEUROLOGICAL: Normal gait, normal strength, normal tone. SKIN: Warm and dry. OVERALL IMPRESSION: Unstable angina. No EKG changes. At this time, we will try to treat medically. We will transfuse 1 unit of packed red blood cells and put him on a Nitro-Dur patch. Continue his clonidine, Procardia, and metoprolol. We will see if this makes him pain free and we can avoid coronary angiography at the risk of his renals. We will also consult renal for any further recommendations regarding his renal status. CONSULT REPORT [id number] THAO BAUMANN TRANSINT:[id number] Voice Confirmation ID: [id number] DOCUMENT ID: [id number] DELFINO GARNER MD at 1704 CC: [id number] DICTATION DATE: 04/05/18 1032 CHARGE ENTRY: 04/05/18 1058 ADM IN [place] [id number] [place] [id number]
[2018-04-05 09:29] LABS: BASOPHILS 0.2 % (0-2); EOSINOPHILS 3.9 % (0-7); HEMATOCRIT 26.4 % (42.0-54.0); HEMOGLOBIN 8.6 g/dL (13.5-17.5); IMMATURE GRANULOCYTES 0.2 % (0-5); LYMPHOCYTES 46.8 % (15-50); MCH 30.4 pg (26.0-34.0); MCHC 32.6 g/dL (31.0-37.0); MCV 93.3 fL (80.0-100.0); MEAN PLATELET VOLUME 11.2 fL (7.4-10.4); NEUTROPHILS 40.9 % (40-80); PLATELET COUNT 160 10x3/uL (130-400); RBC 2.83 10x6/uL (4.20-6.10); RDW 14.2 % (11.5-14.5); WBC 9.9 10x3/uL (4.8-10.8)
[2018-04-05 09:41] LABS: APTT 26.3 SECONDS (22.8-39.4); INR 1.05 (0.85-1.17); PROTIME 13.2 SECONDS (11.6-15.0)
[2018-04-05 09:53] LABS: ALKALINE PHOSPHATASE 85 U/L (46-116); ALT (SGPT) 15 U/L (10-68); CALC OSMOLALITY 292 mosm/kg (275-300); CALCIUM 9.3 mg/dL (8.5-10.1); CARBON DIOXIDE 22.6 mmol/L (21.0-32.0); CHLORIDE - SERUM 108 mmol/L (98-107); CREATININE - SERUM 4.2 mg/dL (0.6-1.3); GLUCOSE 101 mg/dL (74-106); POTASSIUM - SERUM 5.2 mmol/L (3.5-5.1); PROTEIN - SERUM 6.2 g/dL (6.4-8.2); SODIUM 139 mmol/L (136-145); UREA NITROGEN 54 mg/dL (7-18); eGFR NON AFRICAN AMERICAN 14 mL/min (90-120)
[2018-04-05 10:01] LABS: CKMB 1.9 U/L (0.0-3.6); CREATINE KINASE 123 UL (21-232); MAGNESIUM - SERUM 2.3 mg/dL (1.8-2.4)
[2018-04-05 10:02] LABS: TROPONIN-I < 0.017 ng/mL (0.000-0.060)
[2018-04-05] MEDS ORDERED: ASPIRIN81 MG PO (12:19)
[2018-04-05] MEDS ORDERED: PLAVIX75 MG PO (12:20)
[2018-04-05 19:32] LABS: % SATURATION 27 % (15-55); IRON 74 ug/dl (35-150); TOTAL IRON BIND CAPACITY 267 ug/dl (260-445); UNSAT IRON BIND CAPACITY 193 ug/dl (150-375)
[2018-04-05 22:50] LABS: APPEARANCE CLEAR (CLEAR); BILIRUBIN NEGATIVE (NEGATIVE); COLOR YELLOW (YELLOW); GLUCOSE 50 mg/dL (NEGATIVE); KETONE NEGATIVE (NEGATIVE); NITRITE NEGATIVE (NEGATIVE); PROTEIN 1+ mg/dL (NEGATIVE); SPECIFIC GRAVITY 1.015 (1.005-1.020); UROBILINOGEN NORMAL (NORMAL)
[2018-04-06 01:06] VITALS: BP 137/67
[2018-04-06 05:11] VITALS: BP 138/76
[2018-04-06 05:50] LABS: BASOPHILS 0.2 % (0-2); EOSINOPHILS 3.7 % (0-7); HEMATOCRIT 30.5 % (42.0-54.0); HEMOGLOBIN 10.1 g/dL (13.5-17.5); IMMATURE GRANULOCYTES 0.2 % (0-5); MCH 30.2 pg (26.0-34.0); MCHC 33.1 g/dL (31.0-37.0); MEAN PLATELET VOLUME 11.6 fL (7.4-10.4); MONOCYTES 6.4 % (2-11); NEUTROPHILS 54.5 % (40-80); PLATELET COUNT 165 10x3/uL (130-400); RBC 3.34 10x6/uL (4.20-6.10); RDW 14.5 % (11.5-14.5); WBC 10.5 10x3/uL (4.8-10.8)
[2018-04-06 06:03] LABS: MCV 91.3 fL (80.0-100.0)
[2018-04-06 06:08] LABS: ANION GAP 15.1 mmol/L (8-16); CALCIUM 9.1 mg/dL (8.5-10.1); CARBON DIOXIDE 23.1 mmol/L (21.0-32.0); CREATININE - SERUM 4.1 mg/dL (0.6-1.3); PHOSPHOROUS 4.4 mg/dL (2.5-4.9); POTASSIUM - SERUM 5.2 mmol/L (3.5-5.1)
[2018-04-06 07:57] VITALS: BP 136/81
[2018-04-06 11:30] VITALS: BP 131/76
[2018-04-06 18:08] VITALS: BP 126/71
[2018-04-06 20:33] VITALS: BP 124/56
[2018-04-07] VITALS (7 sets, daily range): BP systolic 110–147; BP diastolic 50–67
[2018-04-07 06:17] LABS: BASOPHILS 0.4 % (0-2); EOSINOPHILS 4.4 % (0-7); HEMATOCRIT 27.3 % (42.0-54.0); HEMOGLOBIN 8.9 g/dL (13.5-17.5); IMMATURE GRANULOCYTES 0.2 % (0-5); LYMPHOCYTES 43.1 % (15-50); MCH 29.8 pg (26.0-34.0); MCHC 32.6 g/dL (31.0-37.0); MCV 91.3 fL (80.0-100.0); MEAN PLATELET VOLUME 11.8 fL (7.4-10.4); MONOCYTES 7.8 % (2-11); NEUTROPHILS 44.1 % (40-80); PLATELET COUNT 147 10x3/uL (130-400); RBC 2.99 10x6/uL (4.20-6.10); RDW 14.5 % (11.5-14.5); WBC 8.4 10x3/uL (4.8-10.8)
[2018-04-07 06:48] LABS: CALCIUM 8.9 mg/dL (8.5-10.1); CARBON DIOXIDE 21.8 mmol/L (21.0-32.0); CREATININE - SERUM 4.1 mg/dL (0.6-1.3); PHOSPHOROUS 4.1 mg/dL (2.5-4.9); POTASSIUM - SERUM 4.8 mmol/L (3.5-5.1)
[2018-04-07 08:20] LABS: FOLATE (FOLIC ACID) - SERUM 12.7 ng/mL (>3.0)
[2018-04-08 03:55] VITALS: BP 149/58
[2018-04-08 06:51] LABS: CALCIUM 9.5 mg/dL (8.5-10.1); CREATININE - SERUM 4.2 mg/dL (0.6-1.3); PHOSPHOROUS 4.5 mg/dL (2.5-4.9)
[2018-04-08 07:03] LABS: BASOPHILS 0.3 % (0-2); EOSINOPHILS 4.1 % (0-7); HEMOGLOBIN 10.2 g/dL (13.5-17.5); IMMATURE GRANULOCYTES 0.3 % (0-5); MCH 30.2 pg (26.0-34.0); MCHC 32.9 g/dL (31.0-37.0); MCV 91.7 fL (80.0-100.0); MEAN PLATELET VOLUME 11.3 fL (7.4-10.4); NEUTROPHILS 44.3 % (40-80); PLATELET COUNT 160 10x3/uL (130-400); RBC 3.38 10x6/uL (4.20-6.10); RDW 14.1 % (11.5-14.5)
[2018-04-08 07:06] LABS: WBC 11.2 10x3/uL (4.8-10.8)
[2018-04-08 08:09] VITALS: BP 158/76
[2018-04-08] MEDS ORDERED: [UNRECOGNIZED DRUG - CODE] TRANSDERM (09:11)
== END 2018-04-08 09:53 | disposition home or self-care (01) | DRG 683 ==
LOC: D.ER 08:43 → D.M2 10:22 → D.EDHOLD 10:22 → OBSVTIME 10:22 → D.M2 11:56
PROVIDERS: Emergency Medicine; Family Medicine; Internal Medicine Nephrology
DX: N17.9 Acute kidney failure, unspecified (principal); I25.110 Atherosclerotic heart disease of native coronary artery with unstable angina pectoris; N18.4 Chronic kidney disease, stage 4 (severe); I12.9 Hypertensive chronic kidney disease with stage 1 through stage 4 chronic kidney disease, or unspecified chronic kidney disease; K21.9 Gastro-esophageal reflux disease without esophagitis; E53.8 Deficiency of other specified B group vitamins; E78.5 Hyperlipidemia, unspecified; N40.0 Benign prostatic hyperplasia without lower urinary tract symptoms; E87.5 Hyperkalemia; Z95.5 Presence of coronary angioplasty implant and graft

== ENCOUNTER 2018-06-24 12:36 | Inpatient (IN) | payer MEDICARE ==
[~2018-06-24] VITALS: Ht 177.8 cm; Wt 73.2 kg
[~2018-06-24 12:36] MED LIST changes: +ASPIRIN81 MG PO; +[UNRECOGNIZED DRUG - CODE] TRANSDERM
[2018-06-24 13:26] LABS: BASOPHILS 0.3 % (0-2); EOSINOPHILS 5.9 % (0-7); HEMOGLOBIN 8.8 g/dL (13.5-17.5); IMMATURE GRANULOCYTES 0.3 % (0-5); LYMPHOCYTES 43.2 % (15-50); MCH 30.3 pg (26.0-34.0); MCHC 32.6 g/dL (31.0-37.0); MCV 93.1 fL (80.0-100.0); MEAN PLATELET VOLUME 10.6 fL (7.4-10.4); MONOCYTES 5.7 % (2-11); NEUTROPHILS 44.6 % (40-80); PLATELET COUNT 179 10x3/uL (130-400); RDW 14.4 % (11.5-14.5); WBC 11.8 10x3/uL (4.8-10.8)
[2018-06-24 13:36] LABS: ALBUMIN 2.9 g/dL (3.4-5.0); ALKALINE PHOSPHATASE 96 U/L (46-116); ALT (SGPT) 17 U/L (10-68); BILIRUBIN - TOTAL 0.28 mg/dL (0.2-1.3); CALC OSMOLALITY 297 mosm/kg (275-300); CALCIUM 8.6 mg/dL (8.5-10.1); CARBON DIOXIDE 19.7 mmol/L (21.0-32.0); CHLORIDE - SERUM 110 mmol/L (98-107); CREATININE - SERUM 5.1 mg/dL (0.6-1.3); GLUCOSE 113 mg/dL (74-106); POTASSIUM - SERUM 5.9 mmol/L (3.5-5.1); PROTEIN - SERUM 6.3 g/dL (6.4-8.2); SODIUM 142 mmol/L (136-145); UREA NITROGEN 52 mg/dL (7-18); eGFR NON AFRICAN AMERICAN 11 mL/min (90-120)
[2018-06-24 13:47] LABS: CKMB 3.3 U/L (0.0-3.6); CREATINE KINASE 131 UL (21-232)
[2018-06-24 13:48] LABS: TROPONIN-I < 0.017 ng/mL (0.000-0.060)
--- NOTE | 2018-06-24 16:35 | NUR ---
FIRST UNIT OF BLOOD STARTED.
--- NOTE | 2018-06-24 17:21 | MORECARE ---
CASE MANAGEMENT DISCHARGE SUMMARY PATIENT: THAO BAUMANN UNIT: [id number] ADM DATE: 06/24/18 AGE: 87 : 29 SEX: M ROOM/BED: D.2124 AUTHOR: SABRINA CORTEZ PHYSICIAN: REFERRING PHYSICIAN: KELIN OVIEDO MD DATE OF SERVICE: 06/24/18 Discharge Plan Patient Name: THAO BAUMANN Facility: [facility]:[place] : 1930 Planned Disposition: Home Anticipated Discharge Date: 06/27/18 Discharge Date: Expected LOS: 3 Initial Reviewer: [email or web address] Initial Review Date: 06/24/2018 Generated: 06/24/18 6:21 pm Patient Name: THAO BAUMANN Page [phone] at 1721 All edits/amendments must be made on the electronic document DICTATION DATE: 06/24/181719 DESK REPORTER: ROWENA 06/24/181719 RPT#: [id number] DC DATE: STATUS: ADM IN [facility] [address] [place] [address] END OF REPORT
--- NOTE | 2018-06-24 17:29 | MORECARE ---
CASE MANAGEMENT DISCHARGE SUMMARY PATIENT: THAO BAUMANN UNIT: [id number] ADM DATE: 06/24/18 AGE: 87 : 29 SEX: M ROOM/BED: D.7667 AUTHOR: DANA,DOC PHYSICIAN: REFERRING PHYSICIAN: KELIN OVIEDO MD DATE OF SERVICE: 06/24/18 Discharge Plan Patient Name: THAO BAUMANN Facility: [facility]:[place] : 1930 Planned Disposition: Home Anticipated Discharge Date: 06/27/18 Discharge Date: Expected LOS: 3 Initial Reviewer: [email or web address] Initial Review Date: 06/24/2018 Generated: 06/24/18 6:29 pm DCP- Discharge Planning Updated by [email or web address]: Lea Ledesma on 06/24/18 4:[address] Patient Name: THOA BAUMANN Admission Status: ER Accout number: [id number] Admission Date: 06-24-2018 : 1930 Admission Diagnosis: Attending: KELIN OVIEDO Current LOS: 1 Anticipated DC Date: 06-27-2018 Planned Disposition: Home Primary Insurance: MEDICARE A & B Discharge Planning Comments: CM met with patient and his to complete initial dc planning assessment. CM educated patient on the CM role and verbal consent given by patient to complete assessment. Patient lives at home independently with his . At discharge patient plans to return home with his and feels this is a safe discharge. CM discussed availability of home health, rehab services, and medical equipment. Patient denied known discharge needs at this time. CM will continue to follow and will assist as needed with dc plans/needs. Hostage Negotiator: Lea Ledesma RN, [facility] DCPIA - Discharge Planning Initial Assessment Updated by [email or web address]: Lea Ledesma on 06/24/18 5:21 pm * Is the patient Alert and Oriented? Yes * How many steps to enter\exit or inside your home? two * PCP Dr. Oviedo * Pharmacy [facility] or [facility] in [place] * Preadmission Environment Home with Family * ADLs Independent * Equipment Cane Rolling Walker * List name and contact numbers for known caregivers / representatives who currently or will assist patient after discharge: James Feliciano - son - [phone] Mirtha Baumann - - [phone] * Verbal permission to speak to the caregivers and representatives has been obtained from the patient. Yes * Community resources currently utilized None * Additional services required to return to the preadmission environment? No * Can the patient safely return to the preadmission environment? Yes * Has this patient been hospitalized within the prior 30 days at any hospital? No Last DP export: 06/24/18 4:21 p Patient Name: THAO BAUMANN Page [phone] at 1729 All edits/amendments must be made on the electronic document DICTATION DATE: 06/24/181728 CONVEYOR OPERATOR: ROWENA 06/24/181728 RPT#: [id number] [place] DATE: STATUS: ADM IN [facility] [address] [place] [address] END OF REPORT
--- NOTE | 2018-06-24 18:43 | NUR ---
RECIEVED FROM ER. V/S STABLE. FAMILY AT BEDSIDE. TELEMERTY SHOWS SR 80. BLOOD INFUSING TO LEFT AC. NO NEEDS VOICED
[2018-06-24 19:19] VITALS: BMI 23.2
[2018-06-24 20:00] VITALS: BP 181/93
--- NOTE | 2018-06-24 20:11 | NUR ---
PT BLOOD FINISHED RUNNING. VITALS STABLE. PT DENIES ANY PAIN OR NEEDS AT THIS TIME. BED LOW CALL LIGHT WITHIN REACH. WILL CONTINUE TO MONITOR.
[2018-06-25] VITALS (7 sets, daily range): BP systolic 138–188; BP diastolic 59–88; Ht 177.8 cm; Wt 73.2 kg
[2018-06-25 01:01] LABS: BASOPHILS 0.1 % (0-2); EOSINOPHILS 6.6 % (0-7); HEMATOCRIT 26.2 % (42.0-54.0); HEMOGLOBIN 8.6 g/dL (13.5-17.5); IMMATURE GRANULOCYTES 0.1 % (0-5); LYMPHOCYTES 39.6 % (15-50); MCH 29.5 pg (26.0-34.0); MCHC 32.8 g/dL (31.0-37.0); MEAN PLATELET VOLUME 11.2 fL (7.4-10.4); MONOCYTES 6.2 % (2-11); NEUTROPHILS 47.4 % (40-80); RBC 2.92 10x6/uL (4.20-6.10)
[2018-06-25 01:04] LABS: MCV 89.7 fL (80.0-100.0); PLATELET COUNT 141 10x3/uL (130-400); WBC 7.6 10x3/uL (4.8-10.8)
[2018-06-25 01:21] LABS: CALC OSMOLALITY 297 mosm/kg (275-300); CALCIUM 8.3 mg/dL (8.5-10.1); CARBON DIOXIDE 19.5 mmol/L (21.0-32.0); CHLORIDE - SERUM 112 mmol/L (98-107); CREATININE - SERUM 4.8 mg/dL (0.6-1.3); GLUCOSE 101 mg/dL (74-106); POTASSIUM - SERUM 5.3 mmol/L (3.5-5.1); SODIUM 143 mmol/L (136-145); TROPONIN-I < 0.017 ng/mL (0.000-0.060); UREA NITROGEN 48 mg/dL (7-18); eGFR NON AFRICAN AMERICAN 12 mL/min (90-120)
--- NOTE | 2018-06-25 04:02 | NUR ---
PT RESTING COMFORTABLY. RR-EVEN AND UNLABORED. BED LOW CALL LIGHT WITHIN REACH. WILL CONTINUE TO MONITOR.
--- NOTE | 2018-06-25 04:17 | NUR ---
RESTING IN BED WITH EYES CLOSED. NO S/S.
--- NOTE | 2018-06-25 10:17 | NUR ---
AM MEDS GIVEN AT THIS TIME. ALSO GAVE NORCO FOR PAIN LEVEL OF 2/10. PT DENIES ANY NEEDS AT THIS TIME. RT AC IV NOT WORKING. WILL D/C IV AND START NEW IV. PT DENIES ANY OTHER NEEDS AT THIS TIME. CALL LIGHT IN REACH, AT BEDSIDE, NAD NOTED, WILL CONTINUE TO MONITOR.
--- NOTE | 2018-06-25 11:49 | HP ---
PATIENT: THAO BAUMANN MEDICAL RECORD: [id number] ACCOUNT: [id number] LOCATION:[address] : [birth year] ADMISSION DATE: 06/24/18 PCP: KELIN OVIEDO MD HISTORY AND PHYSICAL EXAMINATION DATE OF ADMISSION: 06/24/2018. CHIEF COMPLAINT: Chest pain. HISTORY OF PRESENT ILLNESS: This is an 87-year-old white male who has a history of coronary artery disease. He presents with chest pain, has been happening off and on over the last several days or longer, but he was sent in the lobby of my office while I was seeing his this morning and he started having chest pain. She tried to get him to come to the ER and after she got back from seeing me, he decided that that is what he needed to do. In the ER, his troponin was less than 0.017. His hemoglobin was down to 8.8. He does have a history of B12 deficiency anemia. His has been giving him his shots and she is not feeling so confident anymore to give those, so he admits that he has not gotten those in a timely fashion recently. His creatinine is up to 5.1. He sees Dr. Barraza, a local bisque grader for his chronic kidney disease. The patient was admitted here on 04/06/2018 with similar symptoms as creatinine then was 4.2. He is admitted. PAST MEDICAL AND SURGICAL HISTORY: Hypertension, coronary artery disease, osteoarthritis, reflux, peptic ulcer disease, BPH, skin cancer, peripheral neuropathy. He had anemia workup in 2017 at [facility]. It showed normal iron, but a B12 level of 201. He has been getting B12 shots ever since. PAST SURGICAL HISTORY: Hernia repair, appendectomy, cholecystectomy, lumbar surgery times 2, bilateral total knee arthroplasty, total right hip arthroplasty, right total shoulder arthroplasty, TURP and several coronary stents. HABITS: He is a former smoker. Denies alcohol or drugs. SOCIAL HISTORY: , retired. FAMILY HISTORY: Significant for hypertension in his parents, diabetes, cancer or heart disease in his siblings. REVIEW OF SYSTEMS: GENERAL: No major weight changes. HEENT: No particular sinus or allergy problems. RESPIRATORY: No history of COPD or emphysema. CARDIAC: See above history for his heart disease. He states he has had at least 20 stents. GASTROINTESTINAL: He has some reflux and some constipation. GENITOURINARY: History of BPH status post TURP. MUSCULOSKELETAL: Arthritic aches and pains. He has had hips and knees replaced. NEUROLOGIC: No migraines. No seizures. PSYCHIATRIC: No depression or melancholia. HOME MEDICATIONS: Sodium bicarbonate 10 mg 4 times a day, gabapentin 600 mg twice a day, isosorbide mononitrate 30 mg twice a day, nifedipine ER 60 once a HISTORY AND PHYSICAL [id number] THAO BAUMANN M day, pravastatin 40 mg once a day, metoprolol tartrate 25 mg twice a day, clonidine 0.2 mg twice a day, nitroglycerin p.r.n., pantoprazole 40 mg a day. PHYSICAL EXAMINATION: VITAL SIGNS: Temperature 97.5, pulse 78, respirations 18, blood pressure 118/70, O2 sat 96%. GENERAL: Elderly white male who has just got into his room from the Emergency Department, sitting on the side of the bed. SKIN: Warm and dry. HEENT: Grossly within normal limits. NECK: Supple. No JVD or bruit. HEART: Regular rate and rhythm. LUNGS: Clear. ABDOMEN: Soft, nontender. EXTREMITIES: No edema. LABORATORY DATA: Troponin less than 0.017. ABG: pH 7.313, pCO2 41.1, pO2 of 55. CBC with a white count of 11,800, hemoglobin 8.8, hematocrit 27. Sodium 142, potassium 5.9, chloride 110, CO2 19.7, BUN 52, creatinine 5.1, glucose 113, calcium 8.6. Liver functions were all normal. Stool guaiac is negative. ASSESSMENT: 1. Chest pain in a patient with known coronary artery disease. 2. B12 deficiency. 3. Acute kidney injury on chronic kidney disease followed by nephrology. PLAN: Dr. Gonzalez has been consulted. I am going to give him a unit of blood. Gentle hydration, consult nephrology. Other tests or procedures as warranted. TRANSINT:[id number] Voice Confirmation ID: [id number] DOCUMENT ID: [id number] KELIN OVIEDO MD at 1149 CC: [id number] DICTATION DATE: 06/24/18 2307 CONCRETE MIXER: 06/25/18 0043 ADM IN [place] [address] [place] [address]
[2018-06-25] MEDS ORDERED: ISOSORBIDE MONO30 M1 PO (11:59)
--- NOTE | 2018-06-25 15:26 | NUR ---
UNIT OF PRBC STARTED INFUSING AT THIS TIME. VITAL SIGNS STABLE, PT DENIES ANY NEEDS AT THIS TIME. CALL LIGHT IN REACH,NAD NOTED, WILL CONTINUE TO MONITOR.
--- NOTE | 2018-06-25 20:00 | NUR ---
PT RESTING IN BED WITH AT BEDSIDE. ALERT/ORIENTED. PRBC HAS COMPLETED. DISCONNECTED AND IV TO LFA SALINE LOCKED. SR PER TELEMETRY. NONLABORED RESPIRATIONS ON ROOM AIR. DISCUSSED PLAN OF CARE AND INTERVENTIONS FOR THIS EVENING. MONITOR AND CPOC.
[2018-06-25 23:02] LABS: APPEARANCE CLEAR (CLEAR); BILIRUBIN NEGATIVE (NEGATIVE); COLOR YELLOW (YELLOW); GLUCOSE 100 mg/dL (NEGATIVE); KETONE NEGATIVE (NEGATIVE); NITRITE NEGATIVE (NEGATIVE); PROTEIN NEGATIVE (NEGATIVE); UROBILINOGEN NORMAL (NORMAL)
--- NOTE | 2018-06-26 01:00 | NUR ---
RESTING IN BED WITH NO DISTRESS. MONITOR AND CPOC.
[2018-06-26 03:56] VITALS: BP 129/52
[2018-06-26 05:32] LABS: BASOPHILS 0.3 % (0-2); EOSINOPHILS 6.6 % (0-7); HEMATOCRIT 31.4 % (42.0-54.0); IMMATURE GRANULOCYTES 0.1 % (0-5); LYMPHOCYTES 38.7 % (15-50); MCH 29.6 pg (26.0-34.0); MCHC 33.1 g/dL (31.0-37.0); MCV 89.5 fL (80.0-100.0); MONOCYTES 7.1 % (2-11); NEUTROPHILS 47.2 % (40-80); PLATELET COUNT 137 10x3/uL (130-400); RDW 15.7 % (11.5-14.5); WBC 7.5 10x3/uL (4.8-10.8)
--- NOTE | 2018-06-26 05:37 | NUR ---
PT ARRIVED TO FLOOR, ROOM 2120, VIA WHEELCHAIR. ALERT/ORIENTED. ADMISSION HISTORY AND ASSESSMENT COMPLETED. HOME MEDS UPDATED/LAST DOSE REVIEWED. TELEMETRY STARTED. IV ZOFRAN GIVEN FOR NAUSEA. DR BARKSDALE NOW ON UNIT SEEING PATIENT.
[2018-06-26 05:43] LABS: HEMOGLOBIN 10.4 g/dL (13.5-17.5); RBC 3.51 10x6/uL (4.20-6.10)
--- NOTE | 2018-06-26 05:45 | NUR ---
PT HAS RESTED THROUGH THE NIGHT WITH NO DISTRESS. AT BEDSIDE. MONITOR AND CPOC.
[2018-06-26 05:50] LABS: ANION GAP 17.4 mmol/L (8-16); CALCIUM 8.4 mg/dL (8.5-10.1); CARBON DIOXIDE 18.7 mmol/L (21.0-32.0); CREATININE - SERUM 4.5 mg/dL (0.6-1.3); POTASSIUM - SERUM 5.1 mmol/L (3.5-5.1)
--- NOTE | 2018-06-26 07:20 | NUR ---
PT IN BED, A/O X4, LT FA IV SL. RESP EVEN AND NONLABORED ON RA. MONITOR SHOWING SB 52. PT DENIES ANY NEEDS AT THIS TIME. CALL LIGHT IN REACH, BEDSIDE RAILS X2, AT BEDSIDE, NAD NOTED, WILL CONTINUE PLAN OF CARE.
[2018-06-26 08:28] VITALS: BP 148/62
--- NOTE | 2018-06-26 08:36 | NUR ---
AM MEDS GIVEN AT THIS TIME. PT UP TO SIDE OF BED, EATING BREAKFAST, DENIES ANY NEEDS AT THIS TIME. CALL LIGHT IN REACH. AT BEDSIDE, WILL CONTINUE TO MONITOR.
--- NOTE | 2018-06-26 11:00 | NUR ---
CALLED PHARMACY AND SPOKE WITH MAGDALENA, INFORMED HER THAT I NEED SODIUM BICARB FOR PT.
[2018-06-26] MEDS ORDERED: SODIUM BICARBO325 MG PO (11:46)
[2018-06-26 12:10] VITALS: BP 145/61
--- NOTE | 2018-06-26 12:17 | NUR ---
SPOKE WITH , DR.BOWEN JEWELL FOR PATIENT TO BE DISCHARGED TO HOME. PATIENT DENIES HAVING CHEST PAIN AT THIS TIME.
--- NOTE | 2018-06-26 13:03 | NUR ---
PROVIDED VERBAL AND WRITTEN DISCHARGE TEACHING TO PT, WHO VERBALIZED UNDERSTANDING REGARDING TEACHING. D/C LT FA IV WITH CATHETER TIP INTACT. PT LEFT UNIT VIA WHEELCHAIR, ACCOMPANIED BY AND WITH ALL BELONGINGS, NAD NOTED.
--- NOTE | 2018-06-27 09:19 | MORECARE ---
CASE MANAGEMENT DISCHARGE SUMMARY PATIENT: THAO BAUMANN UNIT: [id number] ADM DATE: 06/24/18 AGE: 87 : 29 SEX: M ROOM/BED: D.4554 AUTHOR: DANA,DOC PHYSICIAN: REFERRING PHYSICIAN: KELIN OVIEDO MD DATE OF SERVICE: 06/27/18 Discharge Plan Patient Name: THAO BAUMANN Facility: [facility]:[place] : 1930 Planned Disposition: Home Anticipated Discharge Date: 06/26/18 Discharge Date: 06/26/2018 Expected LOS: 2 Initial Reviewer: [email or web address] Initial Review Date: 06/24/2018 Generated: 06/27/18 10:19 am DCP- Discharge Planning Updated by [email or web address]: Lea Ledesma on 06/24/18 4:[address] Patient Name: THAO BAUMANN Admission Status: ER Accout number: [id number] Admission Date: 06-24-2018 : 1930 Admission Diagnosis: Attending: KELIN OVIEDO Current LOS: 1 Anticipated DC Date: 06-27-2018 Planned Disposition: Home Primary Insurance: MEDICARE A & B Discharge Planning Comments: CM met with patient and his to complete initial dc planning assessment. CM educated patient on the CM role and verbal consent given by patient to complete assessment. Patient lives at home independently with his . At discharge patient plans to return home with his and feels this is a safe discharge. CM discussed availability of home health, rehab services, and medical equipment. Patient denied known discharge needs at this time. CM will continue to follow and will assist as needed with dc plans/needs. Geotechnical Laboratory Technician: Lea Ledesma RN, [facility] DCPIA - Discharge Planning Initial Assessment Updated by [email or web address]: Lea Ledesma on 06/24/18 5:21 pm * Is the patient Alert and Oriented? Yes * How many steps to enter\exit or inside your home? two * PCP Dr. Oviedo * Pharmacy [facility] or [facility] in [place] * Preadmission Environment Home with Family * ADLs Independent * Equipment Cane Rolling Walker * List name and contact numbers for known caregivers / representatives who currently or will assist patient after discharge: James Feliciano - son - [phone] Mirtha Baumann - - [phone] * Verbal permission to speak to the caregivers and representatives has been obtained from the patient. Yes * Community resources currently utilized None * Additional services required to return to the preadmission environment? No * Can the patient safely return to the preadmission environment? Yes * Has this patient been hospitalized within the prior 30 days at any hospital? No Last DP export: 06/24/18 4:29 p Patient Name: THAO BAUMANN Page [phone] at 0919 All edits/amendments must be made on the electronic document DICTATION DATE: 06/27/18918 MAIL SUPERINTENDENT: ROWENA 06/27/18918 RPT#: [id number] DC DATE:06/26/18 STATUS: DIS IN [facility] [address] [place] [address] END OF REPORT
--- NOTE | 2018-06-27 11:46 | CN ---
PATIENT NAME:THAO BAUMANN MEDICAL RECORD: [id number] : [birth year] LOCATION:D. D.2124 ADMIT DATE: 06/24/18 ACCOUNT: [id number] CONSULTING PHYSICIAN: DELFINO GARNER MD REFERRING PHYSICIAN: KELIN OVIEDO MD DATE OF CONSULTATION: 06/24/2018 ADMITTING DIAGNOSES: 1. Angina. 2. Coronary artery disease. 3. Claudication. 4. Peripheral vascular disease. 5. Renal insufficiency, creatinine 5.1. 6. Anemia, hemoglobin 8.8. 7. Hypertension. 8. Hyperlipidemia. HISTORY OF PRESENT ILLNESS: Mr. Baumann is well known to us. He does have a history of coronary artery disease. Last cardiac stent 2016, who presents with chest pain. He had a similar presentation approximately a month ago. At that time, his hemoglobin was 9.1, it was felt to be anemia of chronic disease secondary to his renal insufficiency. This anemia has worsened and now he had resolution of his chest pain with 1 unit of packed cells. His creatinine at that time was in the 4.4 range, is now with a 5.1 range. His EKG is with no acute ST-T abnormalities. PHYSICAL EXAMINATION: GENERAL APPEARANCE: Well-nourished, well-developed, appears stated age. Level of distress, comfortable. PSYCHIATRIC: Mental status, alert, normal affect. Orientation, oriented to time, place and person. EYES: Lids and conjunctiva, noninjected. No discharge, no pallor. ENT: Lips, teeth, gums, normal dentition. Oropharynx, no cyanosis, no pallor. NECK: Carotid arteries, bilateral normal upstroke, no bruits, no thrills. JUGULAR VEINS: No jugular venous pressure or distention. CERVICAL LYMPH NODES: Nontender, nonenlarged. THYROID: Not enlarged. Nontender. No nodules. LUNGS: Respiratory effort, unlabored. CHEST: Normal curvature. No thoracic deformity. No chest wall tenderness. Percussion, resonant. Auscultation, clear. No wheezes, no rales, no rhonchi. CARDIOVASCULAR: Precordial exam, nondisplaced. No heaves or pericardial thrills. Rate and rhythm, regular. Heart sounds, normal S1, normal S2. No S3, no gallop, no rub. Systolic murmur, not heard. Diastolic murmur, not heard. EXTREMITIES: No cyanosis, no edema. Peripheral pulses, full and equal in all extremities, except as noted. No bruits appreciated. ABDOMEN: Soft, nondistended. Normal aorta. No bruit. Nontender. No masses. Liver, nontender, no hepatomegaly. Spleen, nontender, no splenomegaly. MUSCULOSKELETAL: No joint tenderness. No joint swelling. No erythema. NEUROLOGICAL: Normal gait, normal strength, normal tone. SKIN: Warm and dry. OVERALL IMPRESSION: Chest pain compatible with angina, most likely secondary to the anemia. Obviously with his renal insufficiency, I would like to try to treat this medically. We will continue his current blood pressure medications including metoprolol, nifedipine, clonidine and transfuse at this time. I would CONSULT REPORT [id number] THAO BAUMANN only proceed with coronary angiography if it was an acute coronary syndrome or if he had unrelenting chest pain. Hopefully, with transfusion, he will have resolution of his chest pain as he did in the past. TRANSINT:[id number] Voice Confirmation ID: [id number] DOCUMENT ID: [id number] DELFINO GARNER MD at 1146 CC: [id number] DICTATION DATE: 06/24/18 1517 MEMBER SERVICES REPRESENTATIVE: 06/24/18 2339 DIS IN 06/26/18 [place] [address] [place] [address]
== END 2018-06-26 13:20 | disposition home or self-care (01) | DRG 812 ==
LOC: D.ER 12:36 → D.EDHOLD 15:53 → D.M2 16:34
PROVIDERS: Family Medicine; ADMIT Family Medicine
DX: D64.9 Anemia, unspecified (principal); N17.9 Acute kidney failure, unspecified; I25.119 Atherosclerotic heart disease of native coronary artery with unspecified angina pectoris; I10 Essential (primary) hypertension; E78.5 Hyperlipidemia, unspecified; E53.8 Deficiency of other specified B group vitamins; K21.9 Gastro-esophageal reflux disease without esophagitis; I12.9 Hypertensive chronic kidney disease with stage 1 through stage 4 chronic kidney disease, or unspecified chronic kidney disease; N18.9 Chronic kidney disease, unspecified; I73.9 Peripheral vascular disease, unspecified; N40.0 Benign prostatic hyperplasia without lower urinary tract symptoms

== ENCOUNTER → 2018-06-30 08:32 | Outpatient (CLI) | payer MEDICARE ==
[2018-06-25 14:01] VITALS: BMI 23.2
[~2018-06-30 08:32] MED LIST changes: +SODIUM BICARBO325 MG PO
== END | disposition home or self-care (01) ==
LOC: D.US 08:32
DX: M79.605 Pain in left leg (principal); M79.604 Pain in right leg; R53.1 Weakness

== ENCOUNTER 2018-08-25 12:29 | Day surgery (SDC) | payer MEDICARE ==
[~2018-08-25] VITALS: Ht 177.8 cm; Wt 70.3 kg
[2018-08-25 13:51] VITALS: BP 130/49; Ht 177.8 cm; Wt 70.3 kg
[2018-08-25 13:56] LABS: BASOPHILS 0.4 % (0-2); EOSINOPHILS 6.4 % (0-7); HEMOGLOBIN 8.5 g/dL (13.5-17.5); IMMATURE GRANULOCYTES 0.4 % (0-5); LYMPHOCYTES 43.1 % (15-50); MCH 29.5 pg (26.0-34.0); MCHC 32.7 g/dL (31.0-37.0); MCV 90.3 fL (80.0-100.0); MEAN PLATELET VOLUME 11.1 fL (7.4-10.4); MONOCYTES 8.9 % (2-11); NEUTROPHILS 40.8 % (40-80); PLATELET COUNT 155 10x3/uL (130-400); RBC 2.88 10x6/uL (4.20-6.10); RDW 14.8 % (11.5-14.5); WBC 7.9 10x3/uL (4.8-10.8)
[2018-08-25 14:22] LABS: ANION GAP 15.9 mmol/L (8-16); CARBON DIOXIDE 22.2 mmol/L (21.0-32.0); CREATININE - SERUM 5.1 mg/dL (0.6-1.3); POTASSIUM - SERUM 5.1 mmol/L (3.5-5.1)
--- NOTE | 2018-08-31 12:10 | OP ---
PATIENT NAME: THAO BAUMANN MEDICAL RECORD: [id number] :28 LOCATION:[place] ADMISSION DATE: SURGEON: ASHLEE WEST MD DATE OF OPERATION: 08/25/2018 PREOPERATIVE DIAGNOSIS: Painful total hip arthroplasty, right. POSTOPERATIVE DIAGNOSIS: Painful total hip arthroplasty, right. PROCEDURE: Injection of the right total hip under TIVA and fluoro. SURGEON: Ashlee West MD ANESTHESIA: General. INTRAOPERATIVE COMPLICATIONS: None. INDICATIONS: Mr. Baumann is an 87-year-old gentleman, who has such severe kidney disease that he has been turned down by PCP and nephrology for revision total hip arthroplasty. His hip is stable; however, it is old. He has some eccentric polyethylene wear noted on radiographs. While he has been previously signed up for revision total hip arthroplasty, he has been told that that would likely result in ultimate kidney failure. This is an attempt to try and give him some pain relief from his now 11-year-old total hip arthroplasty. OPERATIVE SUMMARY IN DETAIL: After obtaining the appropriate preoperative orthopedic surgery consent as well as anesthetic consultation, evaluation and clearance, the patient was brought to the operating room and placed on the operating table in supine position, essentially placed on the cysto table. Using the cysto fluoroscopy, the hip was identified. After TIVA anesthesia was administered, the right hip was prepped and draped in a routine sterile fashion. An 18-gauge needle was then placed into the capsule of the total hip arthroplasty. A small amount of Isovue was utilized to be sure that the tip was in the appropriate place and the patient was given a total of 5 cc of 0.25% Marcaine plain and 80 mg of Depo-Medrol. Having completed this, the needle tip was dried. Bandage was applied. The patient was awakened and taken to recovery room in stable condition. All final needle and sponge counts were correct. TRANSINT:[id number] Voice Confirmation ID: [id number] DOCUMENT ID: [id number] ASHLEE WEST MD at 1210 CC: [id number] DICTATION DATE: 08/27/18917 PROPULSION GENERATOR REPAIRER: 08/27/18952 [facility] 08/25/18 [place] [address]
== END 2018-08-25 15:50 | disposition home or self-care (01) ==
LOC: D.OPS 12:29
PROVIDERS: Anesthesiology; ATTEND Orthopaedic Surgery
DX: T84.84XA Pain due to internal orthopedic prosthetic devices, implants and grafts, initial encounter (principal)

== ENCOUNTER 2018-09-07 10:34 | Emergency (ER) | payer MEDICARE ==
[~2018-09-07] VITALS: Ht 177.8 cm; Wt 73.6 kg
[2018-09-07 10:35] VITALS: Ht 177.8 cm; Wt 73.6 kg
[2018-09-07 11:17] LABS: ALBUMIN 2.7 g/dL (3.4-5.0); ALKALINE PHOSPHATASE 96 U/L (46-116); ALT (SGPT) 21 U/L (10-68); BILIRUBIN - TOTAL 0.35 mg/dL (0.2-1.3); CALC OSMOLALITY 292 mosm/kg (275-300); CALCIUM 8.5 mg/dL (8.5-10.1); CARBON DIOXIDE 22.8 mmol/L (21.0-32.0); CHLORIDE - SERUM 110 mmol/L (98-107); CREATININE - SERUM 4.8 mg/dL (0.6-1.3); GLUCOSE 140 mg/dL (74-106); PROTEIN - SERUM 5.8 g/dL (6.4-8.2); SODIUM 140 mmol/L (136-145); UREA NITROGEN 47 mg/dL (7-18); eGFR NON AFRICAN AMERICAN 12 mL/min (90-120)
[2018-09-07 11:18] LABS: POTASSIUM - SERUM 5.2 mmol/L (3.5-5.1)
[2018-09-07 11:23] LABS: BASOPHILS 0.3 % (0-2); EOSINOPHILS 3.9 % (0-7); HEMATOCRIT 25.2 % (42.0-54.0); HEMOGLOBIN 8.2 g/dL (13.5-17.5); IMMATURE GRANULOCYTES 0.5 % (0-5); LYMPHOCYTES 36.7 % (15-50); MCH 29.9 pg (26.0-34.0); MCHC 32.5 g/dL (31.0-37.0); MEAN PLATELET VOLUME 11.4 fL (7.4-10.4); MONOCYTES 7.6 % (2-11); PLATELET COUNT 153 10x3/uL (130-400); RBC 2.74 10x6/uL (4.20-6.10); RDW 15.5 % (11.5-14.5); WBC 7.9 10x3/uL (4.8-10.8)
[2018-09-07 11:29] LABS: APTT 25.4 SECONDS (22.8-39.4); INR 1.1 (0.85-1.17); PROTIME 13.7 SECONDS (11.6-15.0)
[2018-09-07 11:31] LABS: CKMB 2.8 U/L (0.0-3.6); CREATINE KINASE 169 UL (21-232); MAGNESIUM - SERUM 1.8 mg/dL (1.8-2.4); TROPONIN-I < 0.017 ng/mL (0.000-0.060)
[2018-09-07 16:30] VITALS: BP 146/64
== END 2018-09-07 16:43 | disposition home or self-care (01) ==
LOC: D.ER 10:34
PROVIDERS: Emergency Medicine
DX: R53.1 Weakness (principal); D64.9 Anemia, unspecified; R07.9 Chest pain, unspecified; I12.9 Hypertensive chronic kidney disease with stage 1 through stage 4 chronic kidney disease, or unspecified chronic kidney disease; N18.9 Chronic kidney disease, unspecified

== ENCOUNTER 2018-09-12 10:20 | Observation (INO) | payer MEDICARE ==
[2018-09-12] VITALS (10 sets, daily range): BP systolic 106–163; BP diastolic 47–80; Ht 177.8 cm; Wt 73.6 kg
[~2018-09-12] VITALS: Ht 177.8 cm; Wt 73.6 kg
--- NOTE | ~2018-09-12 | EC ---
PATIENT:THAO BAUMANN DATE OF SERVICE: 09/12/18 SEX: M MEDICAL RECORD: [id number] DATE OF : [birth year] LOCATION:D.M3 D.120 AGE OF PATIENT: 87 ADMISSION DATE: 09/12/18 REFERRING PHYSICIAN: INTERPRETING PHYSICIAN: DELFINO GONZALEZ MD ECHOCARDIOGRAM REPORT ECHO CHARGES 4 ECHO COMPLETE Date: 09/12/18 CLINICAL DIAGNOSIS: ANGINA, ANEMIA ECHOCARDIOGRAPHIC MEASUREMENTS (adult normal given) AC root (d.<3.7cm) 2.2 cm LV Septum d (<1.2 cm> 0.9 cm Valve Excursion 1.2 cm LV Septum (systole) 1.7 cm Left Atria (s.<4.0cm> 3.8 cm LVPW d(<1.2cm) 1.2 cm RV (d.<2.3cm) 2.9 cm LVPW (sytole) 2.0 cm LV diastole(<5.6CM) 5.4 cm MV E-F(>70mm/sec) cm LV systole 2.7 cm LVOT Diameter 1.8 cm MV exc.(>10mm) cm Est.ejection fraction (50-75%) % DOPPLER: LVIT cm/sec A 93 cm/sec E 103 cm/sec LA cm/sec RVSP 33.2 mmHg LVOT 109 cm/sec AOP1/2T m/s Asc. Ao 166 cm/sec RVOT 80 cm/sec RA cm/sec PA 106 cm/sec AV Gradient Peak 11.1 mmHg AV Mean 6.2 mmHg AV Area 1.9 cm MV Gradient Peak 6.2 mmHg MV Mean 2.9 mmHg MV Area cm COMMENTS: Hospitalist Nocturnist Physician: Meir HUSAIN County Court Judge: 1 Dr. Gonzalez TAPE# PACS Pericardial Effusion N DATE OF SERVICE: 09/12/2018 FINDINGS: 1. Left ventricular chamber size is within normal limits. Left ventricular systolic function is normal. Overall ejection fraction estimated at 55%. 2. Left atrium, right atrium, and right ventricular chamber sizes are within normal limits. 3. Valvular structures have normal structure and motion. 4. Doppler interrogation reveals moderate mitral regurgitation, mild tricuspid regurgitation. No other valvular insufficiency or stenosis. Pulmonary systolic ECHOCARDIOGRAM REPORT [id number] THAO BAUMANN pressure is estimated 33 mmHg. 5. No evidence of pericardial effusion or left ventricular thrombus. TRANSINT:[id number] Voice Confirmation ID: [id number] DOCUMENT ID: [id number] DELFINO GONZALEZ MD CC: [id number] DICTATION DATE: 09/13/18 1211 TEA TREE FARM WORKER: 09/13/18 1234 ADM IN [facility] [address] [place] [id number]
--- NOTE | ~2018-09-12 | CN ---
PATIENT NAME:THAO BAUMANN MEDICAL RECORD: [id number] : [birth year] LOCATION:.ER ADMIT DATE: ACCOUNT: [id number] CONSULTING PHYSICIAN: DELFINO GARNER MD REFERRING PHYSICIAN: URBANO HOYOS MD DATE OF CONSULTATION: 09/12/2018 CARDIOLOGY CONSULT DIAGNOSES: 1. Angina. 2. Anemia. 3. Renal insufficiency. 4. Coronary artery disease. 5. Peripheral vascular disease. 6. Hypertension. 7. Hyperlipidemia. HISTORY OF PRESENT ILLNESS: Mr. Baumann presents with chest pain. He was here Wednesday, presenting with chest pain. He took 3 sublingual nitro to relieve his pain today. He is pain free now. His hemoglobin is 7.6. This is a change, previously he was in the 9 range. His creatinine is 4.8. This is a change, previously it was in the 3 range. He is on metoprolol, nifedipine, clonidine, pravastatin, and Imdur from a cardiac standpoint. PHYSICAL EXAMINATION: GENERAL APPEARANCE: Well-nourished, well-developed, appears stated age. Level of distress, comfortable. PSYCHIATRIC: Mental status, alert, normal affect. Orientation, oriented to time, place and person. EYES: Lids and conjunctiva, noninjected. No discharge, no pallor. ENT: Lips, teeth, gums, normal dentition. Oropharynx, no cyanosis, no pallor. NECK: Carotid arteries, bilateral normal upstroke, no bruits, no thrills. JUGULAR VEINS: No jugular venous pressure or distention. CERVICAL LYMPH NODES: Nontender, nonenlarged. THYROID: Not enlarged. Nontender. No nodules. LUNGS: Respiratory effort, unlabored. CHEST: Normal curvature. No thoracic deformity. No chest wall tenderness. Percussion, resonant. Auscultation, clear. No wheezes, no rales, no rhonchi. CARDIOVASCULAR: Precordial exam, nondisplaced. No heaves or pericardial thrills. Rate and rhythm, regular. Heart sounds, normal S1, normal S2. No S3, no gallop, no rub. Systolic murmur, not heard. Diastolic murmur, not heard. EXTREMITIES: No cyanosis, no edema. Peripheral pulses, full and equal in all extremities, except as noted. No bruits appreciated. ABDOMEN: Soft, nondistended. Normal aorta. No bruit. Nontender. No masses. Liver, nontender, no hepatomegaly. Spleen, nontender, no splenomegaly. MUSCULOSKELETAL: No joint tenderness. No joint swelling. No erythema. NEUROLOGICAL: Normal gait, normal strength, normal tone. SKIN: Warm and dry. OVERALL IMPRESSION: Anginal symptomatology, clearly related to the anemia. Would suggest transfusion, do not suggest cardiac catheterization at this time. TRANSINT:[id number] Voice Confirmation ID: [id number] DOCUMENT ID: [id number] CONSULT REPORT [id number] THAO BAUMANN JEFFREY MD CC: [id number] DICTATION DATE: 09/12/18 1200 ESTIMATOR PAPERBOARD BOXES: 09/12/18 1306 [facility] [address] [id number]
[2018-09-12 11:03] LABS: BASOPHILS 0.1 % (0-2); EOSINOPHILS 2.7 % (0-7); HEMATOCRIT 23.6 % (42.0-54.0); HEMOGLOBIN 7.6 g/dL (13.5-17.5); IMMATURE GRANULOCYTES 0.7 % (0-5); LYMPHOCYTES 32.7 % (15-50); MCH 29.6 pg (26.0-34.0); MCHC 32.2 g/dL (31.0-37.0); MCV 91.8 fL (80.0-100.0); MEAN PLATELET VOLUME 10.9 fL (7.4-10.4); MONOCYTES 7.5 % (2-11); NEUTROPHILS 56.3 % (40-80); PLATELET COUNT 162 10x3/uL (130-400); RBC 2.57 10x6/uL (4.20-6.10); WBC 6.8 10x3/uL (4.8-10.8)
[2018-09-12 11:09] LABS: ALBUMIN 2.6 g/dL (3.4-5.0); ALKALINE PHOSPHATASE 97 U/L (46-116); ALT (SGPT) 16 U/L (10-68); BILIRUBIN - TOTAL 0.24 mg/dL (0.2-1.3); CALC OSMOLALITY 293 mosm/kg (275-300); CALCIUM 8.5 mg/dL (8.5-10.1); CARBON DIOXIDE 22.6 mmol/L (21.0-32.0); CHLORIDE - SERUM 109 mmol/L (98-107); CREATININE - SERUM 4.8 mg/dL (0.6-1.3); GLUCOSE 118 mg/dL (74-106); POTASSIUM - SERUM 5.7 mmol/L (3.5-5.1); PROTEIN - SERUM 5.6 g/dL (6.4-8.2); SODIUM 140 mmol/L (136-145); UREA NITROGEN 51 mg/dL (7-18); eGFR NON AFRICAN AMERICAN 12 mL/min (90-120)
[2018-09-12 11:18] LABS: CKMB 2.3 U/L (0.0-3.6); CREATINE KINASE 101 UL (21-232); MAGNESIUM - SERUM 1.8 mg/dL (1.8-2.4); PRO BNP 2187 pg/mL (0-450)
[2018-09-12 11:20] LABS: TROPONIN-I < 0.017 ng/mL (0.000-0.060)
[2018-09-12 12:34] LABS: % SATURATION 43 % (15-55); IRON 99 ug/dl (35-150); TOTAL IRON BIND CAPACITY 227 ug/dl (260-445); UNSAT IRON BIND CAPACITY 128 ug/dl (150-375)
[2018-09-12] MEDS ORDERED: NITROSTAT0.4 MG SL (16:58)
[2018-09-13 01:31] VITALS: BP 143/56
[2018-09-13 05:49] VITALS: BP 158/66
[2018-09-13 06:17] LABS: BASOPHILS 0.3 % (0-2); EOSINOPHILS 3.1 % (0-7); IMMATURE GRANULOCYTES 0.4 % (0-5); LYMPHOCYTES 32.1 % (15-50); MCH 31.1 pg (26.0-34.0); MCHC 35.1 g/dL (31.0-37.0); MONOCYTES 8.5 % (2-11); NEUTROPHILS 55.6 % (40-80); PLATELET COUNT 147 10x3/uL (130-400); RDW 15.3 % (11.5-14.5); WBC 6.8 10x3/uL (4.8-10.8)
[2018-09-13 06:23] LABS: ANION GAP 12.6 mmol/L (8-16); CALCIUM 8.5 mg/dL (8.5-10.1); CARBON DIOXIDE 24.1 mmol/L (21.0-32.0); CREATININE - SERUM 4.7 mg/dL (0.6-1.3)
[2018-09-13 06:24] LABS: POTASSIUM - SERUM 4.7 mmol/L (3.5-5.1)
[2018-09-13 06:59] LABS: HEMATOCRIT 30.2 % (42.0-54.0); HEMOGLOBIN 10.6 g/dL (13.5-17.5); MCV 88.6 fL (80.0-100.0); RBC 3.41 10x6/uL (4.20-6.10)
[2018-09-13 08:25] VITALS: BP 157/70
--- NOTE | 2018-09-13 11:41 | MORECARE ---
CASE MANAGEMENT DISCHARGE SUMMARY PATIENT: THAO BAUMANN UNIT: [id number] ADM DATE: 09/12/18 AGE: 87 : 29 SEX: M ROOM/BED: D.1201 AUTHOR: SABRINA CORTEZ PHYSICIAN: REFERRING PHYSICIAN: KELIN OVIEDO MD DATE OF SERVICE: 09/13/18 Discharge Plan Patient Name: THAO BAUMANN Facility: [facility]:[place] : 1930 Planned Disposition: Home Anticipated Discharge Date: Discharge Date: Expected LOS: Initial Reviewer: [email or web address] Initial Review Date: 09/13/2018 Generated: 09/13/18 12:40 pm Comments DCP- Discharge Planning Updated by [email or web address]: Mery Blandon on 09/13/18 10:[address] Patient Name: THAO BAUMANN Admission Status: ER Accout number: [id number] Admission Date: 09-12-2018 : 1930 Admission Diagnosis: Attending: KELIN OVIEDO Current LOS: 1 Anticipated DC Date: Planned Disposition: Home Primary Insurance: MEDICARE A & B Discharge Planning Comments: CM MET WITH PATIENT ABOUT DC PLANNING/NEEDS. STATES PLANS TO DC TO HOME TODAY. STATES NO NEEDS AT THIS TIME. CM WILL FOLLOW AND ASSIST NEEDED WITH DC PLANNING/NEEDS. Card Maker: Mery Blandon DCPIA - Discharge Planning Initial Assessment Updated by [email or web address]: Mery Blandon on 09/13/18 11:38 am * Is the patient Alert and Oriented? Yes * PCP PREET * [facility] * Preadmission Environment Home with Family * ADLs Independent * Community resources currently utilized None * Additional services required to return to the preadmission environment? No * Can the patient safely return to the preadmission environment? Yes * Has this patient been hospitalized within the prior 30 days at any hospital? No Patient Name: THAO BAUMANN Page 18859 at 1141 All edits/amendments must be made on the electronic document DICTATION DATE: 09/13/18 1140 YARN HAULER: ROWENA 09/13/18 1140 RPT#: [id number] DC DATE: STATUS: ADM IN [facility] [address] [place] [address] END OF REPORT
--- NOTE | 2018-09-13 13:56 | HP ---
PATIENT: THAO BAUMANN MEDICAL RECORD: [id number] ACCOUNT: [id number] LOCATION:[address] : [birth year] ADMISSION DATE: 09/12/18 PCP: KELIN OVIEDO MD HISTORY AND PHYSICAL EXAMINATION DATE OF ADMISSION: 09/12/2018 CHIEF COMPLAINT: Chest pain. HISTORY OF PRESENT ILLNESS: This is an 87-year-old white male with a known history of coronary artery disease, started having chest discomfort about an hour prior to arrival, described as tightness without radiation. No nausea or vomiting. He was brought in by EMS. He took 3 nitros and that did relieve his pain, had no nausea, no vomiting. He felt lightheaded. He has a history of coronary stents. He also has chronic anemia that he is due to B12 deficiency, but also probably due to his chronic kidney disease. His gives him his monthly B12 shots and he sees Dr. Barraza for his chronic kidney disease. He is admitted. In the ER, his hemoglobin was down to 7.6 and hematocrit 23.6. In my office, his last hemoglobin on 08/03/2018 was 9.7 and that had been pretty stable for him. His creatinine is stable in the 4.8 range. PAST MEDICAL HISTORY: He has hypertension, coronary artery disease, osteoarthritis, reflux, peptic ulcer disease, BPH, skin cancer, peripheral neuropathy. Last anemia workup was 2016, which showed normal iron and B12 level of 201 and he has been getting B12 shots since then. He also has chronic kidney disease with a baseline creatinine now of approximately 4.8. PAST SURGICAL HISTORY: Hernia repair, appendectomy, cholecystectomy, lumbar surgery times 2, bilateral total knee arthroplasty, right total hip arthroplasty, right total shoulder arthroplasty, TURP and coronary stents. HABITS: Former smoker. No alcohol or drugs. SOCIAL HISTORY: , retired. FAMILY HISTORY: Significant for hypertension, diabetes, cancer. HOME MEDICATIONS: Pravastatin 40 mg at bedtime, clonidine 0.2 mg once a day, metoprolol 25 b.i.d., nifedipine XL 60 once a day, isosorbide mononitrate 30 mg twice a day, nitroglycerin 0.4 mg tablets every 5 minutes p.r.n. chest pain, gabapentin 600 mg at bedtime, aspirin 81 mg once a day, pantoprazole 40 mg once a day, sodium bicarbonate 325 mg twice a day. REVIEW OF SYSTEMS: GENERAL: No major weight changes. HEENT: No particular sinus or allergy problems. RESPIRATORY: No history of COPD or emphysema. CARDIAC: See above history with his heart. GASTROINTESTINAL: He has some reflux, constipation. GENITOURINARY: History of BPH status post TURP. MUSCULOSKELETAL: He has arthritic aches and pains. He has had hips and knees replaced. NEUROLOGIC: No migraines. No seizures. PSYCHIATRIC: No depression or melancholia. HISTORY AND PHYSICAL [id number] THAO BAUMANN PHYSICAL EXAMINATION: VITAL SIGNS: Temperature 97.2, pulse 65, respirations 20, blood pressure 102/41, O2 sat was 98%. GENERAL: He is awake and alert. He is feeling much better. He has a blood transfusion and currently being administered. HEENT: Unremarkable. NECK: Supple. No bruit. HEART: Regular rate and rhythm without murmur. LUNGS: Fairly clear. ABDOMEN: Soft. EXTREMITIES: No edema. LABORATORY DATA: CBC with a white count of 6800, hemoglobin 7.6, hematocrit 23.6, platelets number 162,000. Sodium 140, potassium 5.7, chloride 109, CO2 22.6, BUN 51, creatinine 4.8, glucose 118, calcium 8.5, magnesium 1.8, iron is 99, TIBC is low at 227, iron saturation is normal at 43, ferritin is high at 348. Liver enzymes were all normal. Troponin less than 0.017. ProBNP 2187. ASSESSMENT: 1. Chest pain in a patient with a known history of coronary artery disease. 2. Anemia with known B12 deficiency, but most likely a component of chronic kidney disease as well. 3. Chronic kidney disease with baseline creatinine of around 4.8. PLAN: We will transfuse. Check stool for Hemoccult. He has an appointment date after tomorrow with Dr. Chen in his office. Dr. Gonzalez has seen him here, an echocardiogram has been done. Anticipate the patient is feeling much better after he gets blood transfusion. Further recommendations as warranted. TRANSINT:[id number] Voice Confirmation ID: [id number] DOCUMENT ID: [id number] KELIN OVIEDO MD at 1356 CC: [id number] DICTATION DATE: 09/13/18828 MOLD MAKER APPRENTICE: 09/13/18 0949 ADM IN [id number] [place] [address]
[2018-09-13 17:17] VITALS: BP 158/64
--- NOTE | 2018-09-14 08:21 | MORECARE ---
CASE MANAGEMENT DISCHARGE SUMMARY PATIENT: THAO BAUMANN UNIT: [id number] ADM DATE: 09/12/18 AGE: 87 : 29 SEX: M ROOM/BED: D.1201 AUTHOR: SABRINA CORTEZ PHYSICIAN: REFERRING PHYSICIAN: KELIN OVIEDO MD DATE OF SERVICE: 09/14/18 Discharge Plan Patient Name: THAO BAUMANN Facility: [facility]:[place] : 1930 Planned Disposition: Home Anticipated Discharge Date: Discharge Date: 09/13/2018 Expected LOS: Initial Reviewer: [email or web address] Initial Review Date: 09/13/2018 Generated: 09/14/18 9:21 am Comments DCP- Discharge Planning Updated by [email or web address]: Mery Blandon on 09/13/18 10:[address] Patient Name: THAO BAUMANN Admission Status: ER Accout number: [id number] Admission Date: 09-12-2018 : 1930 Admission Diagnosis: Attending: KELIN OVIEDO Current LOS: 1 Anticipated DC Date: Planned Disposition: Home Primary Insurance: MEDICARE A & B Discharge Planning Comments: CM MET WITH PATIENT ABOUT DC PLANNING/NEEDS. STATES PLANS TO DC TO HOME TODAY. STATES NO NEEDS AT THIS TIME. CM WILL FOLLOW AND ASSIST NEEDED WITH DC PLANNING/NEEDS. Gopherman: Mery Blandon DCPIA - Discharge Planning Initial Assessment Updated by [email or web address]: Mery Blandon on 09/13/18 11:38 am * Is the patient Alert and Oriented? Yes * PCP PREET * [facility] * Preadmission Environment Home with Family * ADLs Independent * Community resources currently utilized None * Additional services required to return to the preadmission environment? No * Can the patient safely return to the preadmission environment? Yes * Has this patient been hospitalized within the prior 30 days at any hospital? No Last DP export: 09/13/18 10:41 am Patient Name: THAO BAUMANN Page 61053 at 0821 All edits/amendments must be made on the electronic document DICTATION DATE: 09/14/18820 COMMUNICATION ENGINEER: ROWENA 09/14/18820 RPT#: [id number] DC DATE:09/13/18 STATUS: DIS IN [facility] [address] [place] [address] END OF REPORT
== END 2018-09-13 19:13 | disposition home or self-care (01) ==
LOC: D.ER 10:20 → D.M3 13:59 → OBSVTIME 16:40 → D.M3 09-13 19:13
PROVIDERS: Emergency Medicine; ADMIT Family Medicine; ATTEND Family Medicine
DX: D51.9 Vitamin B12 deficiency anemia, unspecified (principal); I25.119 Atherosclerotic heart disease of native coronary artery with unspecified angina pectoris; N40.0 Benign prostatic hyperplasia without lower urinary tract symptoms; I12.9 Hypertensive chronic kidney disease with stage 1 through stage 4 chronic kidney disease, or unspecified chronic kidney disease; N18.4 Chronic kidney disease, stage 4 (severe); I73.9 Peripheral vascular disease, unspecified; E78.5 Hyperlipidemia, unspecified